=== PATIENT | female | born 1945 | race Caucasian/White ===

== ENCOUNTER 2019-03-30 18:28 | Inpatient (IN) | payer MEDICARE, SELFPAY ==
[2019-03-30] VITALS (8 sets, daily range): BP systolic 122–138; BP diastolic 66–83; PULSE 96–115; RESP 18–28; TEMP 37.1–37.5; O2SAT 90–94; BMI 19.7; BMI 19.5; BMI 19.6
--- NOTE | 2019-03-30 18:29 | NURSING ---
NO OLD EKGS
--- NOTE | 2019-03-30 18:44 | EKG12_ITS ---
Test Reason : Blood Pressure : / mmHG Vent. Rate : 101 BPM Atrial Rate : 101 BPM P-R Int : 128 ms QRS Dur : 116 ms QT Int : 354 ms P-R-T Axes : 084 093 062 degrees QTc Int : 459 ms Sinus tachycardia Right bundle branch block Abnormal ECG Confirmed by CARLA APARICIO, GEE ([id number]), metropolitan editor CARLTON DACOSTA ([id number] on 03/31/2019 3:02:15 PM Referred By: ALAN Confirmed By:GEE AGUIRRE MD
--- NOTE | 2019-03-30 18:45 | ED.DCSUM_ITS ---
History of Present Illness Chief Complaint: Shortness of Breath Informant: Patient Onset: Days - Worse since March 28 Context: Gradual Onset Timing: Continuous Quality: Wheezing, cough, phlegm, dyspnea Location: Respiratory Current Severity: Moderate Maximum Severity: Severe Worsened by: Activity Relieved by: Better with albuterol rescue inhaler Associated Symptoms: Congestion and cough Narrative: Patient is a 73-year-old woman who has asthma diagnosed by formal pulmonary testing. She does not have history of COPD and she has never smoked. She denies fever, chills night sweats. She does report nasal congestion. She is never been tested for allergies. She states she is coughing up gobs of phlegm for the past 8 months. She denies chest pain. She denies GI symptoms. She denies myalgias, arthralgias. She denies rash. Denies history of PE or DVT. She denies leg pain, swelling discoloration. Prior similar symptoms: Yes Recent Illness/Hospitalization: Yes - Saw PCP past Sunday - Past Medical History (1) Asthma dependent on inhaled steroids Status: Acute Past Medical History - Allergies and Home Meds Allergies/Adverse Reactions: Allergies No Known Allergies Allergy (Verified 03/30/19 18:31) Primary Care Physician: Elvia Doctor,Out of [NON-STAFF] - Prior records reviewed: Yes Surgical History: noncontributory Lives: Alone Smoking Status: Never smoker Alcohol: None Drugs: None Review of Systems General: Denies: Chills, Fever, Malaise, Sweats Eyes: Denies: Visual changes - bilaterally, Blurred Vision - bilaterally, Diplopia ENT: Denies: Rhinorrhea, Sore throat Cardiovascular: Denies: Chest pain, Palpitations Respiratory: Reports: Dyspnea, Cough, Sputum, Dyspnea on exertion. Denies: Orthopnea, Paroxysmal nocturnal dyspnea, -, - Gastrointestinal: Denies: Abdominal pain, Nausea, Vomiting, Diarrhea, Melena, Hematochezia Genitourinary: Denies: Dysuria, Hematuria, Frequency Musculoskeletal: Denies: Myalgias, Arthralgias, Neck pain, Back pain, Swelling, Extremity Pain Skin: Denies: Rash, Wounds Neurological: Denies: Headache, Weakness, Numbness Allergy: Denies: Uticaria, Swelling of the mouth Physical Exam Vital Signs/Narrative: Vital Signs Temp Pulse Resp BP Pulse Ox 03/30/19 18:29 98.7 F 104 H 21 H 138/83 H 94 Inital Vital Signs reviewed: Yes General: Well nourished, Well developed, Acute Distress Head: Normocephalic, Atraumatic Eyes: Perrl, EOMI ENT: Moist mucous membranes, No rhinorrhea, TM's clear. Negative for: Sinus tenderness Neck: Supple, Nontender, No lymphadenopathy, No JVD Cardiovascular: Regular rhythm, No murmurs, Tachycardia Respiratory: Chest nontender, Wheezing, Decreased Air Movement, Retractions - And use of accessory muscles Abdomen: Soft, Nontender, Nondistended, Normal bowel sounds, No masses Back: Nontender, Normal Inspection Extremities: Nontender, No edema, - - There is no asymmetry, swelling, discoloration, leg vein distention, palpable cords or tenderness along the distribution of the deep venous system. Skin: Normal color, No rash, No Trauma. Negative for: Cyanosis, Diaphoresis, Jaundice Neurological: Alert, Oriented x3, Cranial nerves II-XII grossly intact, Normal Strength, Normal Sensation Psychological: Normal affect, Normal Mood Diagnostic/Tx/Re-eval Chest X-Ray - ED: 2 View, Read by ED Physician, Normal, Heart, Mediastinum, Bony Structures, No Acute Disease, Chronic Changes Impressions Chest X-Ray 03/30/19 20:10 IMPRESSION: No acute cardiopulmonary process. Electronically Signed: Lulú Colón MD at 20:47 EDT Tel , Service support , 03/30/19 20:10 Chest PA and Lateral [RAD] Stat Laboratory Results 03/30/19 03/30/19 18:55 18:55 WBC 8.0 RBC 4.85 Hgb 14.5 Hct 45.0 MCV 92.8 MCH 29.9 MCHC 32.2 RDW Std Deviation 43.0 RDW Coeff of Leah 12.6 Plt Count 178 MPV 11.5 Immature Gran % (Auto) 0.300 Neut % (Auto) 66.8 Lymph % (Auto) 19.8 [place] % (Auto) 6.3 Eos % (Auto) 6.0 H Baso % (Auto) 0.8 Absolute Neuts (auto) 5.3 Absolute Lymphs (auto) 1.58 Nucleated RBC % 0 Sodium 143 Potassium 4.0 Chloride 108 H Carbon Dioxide 29.0 Anion Gap 6 BUN 26 H Creatinine 0.82 Estim Creat Clear Calc 50.32 Est GFR (MDRD) Af Amer 88 Est GFR (MDRD) Non-Af 73 BUN/Creatinine Ratio 31.7 H Glucose 109 H Calcium 9.3 Patient was reassessed. She has minimal use of accessory muscles. Pulse ox 90% on room air. Patient was ambulated around the department. Heart rate increased to 125 and pulse ox dropped to 86%. Will call hospitalist for admission. Suspect there is an allergic component. - Rhythm Strip Rhythm Strip: Sinus Rhythm Rate: 112 Ectopy: None - EKG Initial EKG Interpretation: Sinus Tachycardia - Sinus tachycardia with ventricular rate of 101. KS interval 220 ms. QS duration 160 ms and has a right bundle branch pattern. QT interval is 304 ms. - Medical Decision Making History of asthma and cough obtain chest x-ray to assess for pneumonia, pneumothorax versus exacerbation of asthma. She received 60 mill grams of prednisone. She also was treated with DuoNeb and utero nebulizers. Baseline blood work was obtained to assess for anemia and renal function. Patient desaturated to 86% and only has asthma will call hospitalist for exacerbation of asthma. ED Disposition - Plan for ED Patient: Disposition: Acute Care Hospital [facility] Diagnosis: Status asthmaticus, Respiratory failure with hypoxia, Sinus tachycardia by electrocardiogram Referrals: [facility] Doctor,Out of [NON-STAFF] -
[2019-03-30] MEDS: Albuterol 2.5 MG/3 ML VIAL.NEB. INHALATION ×2 (18:54)
[2019-03-30] MEDS: Ipratropium/Albuterol Sulfate 3 ML AMPUL.NEB INHALATION (18:54)
[2019-03-30 19:08] LABS: Absolute Lymphocyte Count 1.58 X10^3/uL (0.83-4.51); Absolute Neutrophil Count 5.3 X10^3/uL (2.0-7.7); Basophil# 0.06 X10^3/uL; Basophil% 0.8 % (0-1); Eosinophil# 0.48 X10^3/uL; Hemoglobin 14.5 g/dL (12.0-15.0); Lymphocyte # 1.58 X10^3/ul (4.0); Lymphocyte % 19.8 % (19-41); Mean Corp Hgb Conc 32.2 g/dL (32-36); Mean Corpuscular Hgb 29.9 pg (27.0-32.0); Mean Corpuscular Volume 92.8 fL (81-99); Mean Platelet Vol. 11.5 fl (6.2-12.0); Monocyte% 6.3 % (0-10); NRBC Flagged by Analyzer 0 % (0-5); Neutrophil # 5.32 X10^3/uL (2.7-7.7); Neutrophil % 66.8 % (47-70); Platelet Count 178 K/mm3 (150-450); RBC Distribution Width CV 12.6 % (11.6-14.6); Red Blood Count 4.85 M/mm3 (4.2-5.4)
[2019-03-30] MEDS: predniSONE 20 MG Tablet 60 MG PO (19:12)
[2019-03-30 19:23] LABS: Anion Gap 6 (5-15); BUN 26 mg/dL (7-18); BUN/Creat Ratio 31.7 RATIO (10-20); Calcium,Total 9.3 mg/dL (8.5-10.1); Chloride 108 mmol/L (98-107); Creatinine, Serum 0.82 mg/dL (0.55-1.02); EST Glomerular Filtration Rate 73 mL/min (>60); Est Glom Filt Rate - Afr Amer 88 mL/min (>60); Estimated Creatinine Clearance 50.32 ml/min; Glucose 109 mg/dL (74-106); Sodium Level 143 mmol/L (136-145)
--- NOTE | 2019-03-30 20:10 | RAD_ITS ---
STUDY: X-RAY CHEST REASON FOR EXAM: Female, 73 years old. Shortness of breath. TECHNIQUE: PA and lateral views of the chest. COMPARISON: None. FINDINGS: The lungs are hyperinflated. There is no focal consolidation. Normal size heart. Normal mediastinum and marielle. Normal visualized pulmonary arteries. Normal visualized aortic arch and descending thoracic aorta. There are diffuse degenerative changes of the visualized thoracic spine. Normal visualized ribs, clavicles, and shoulders. There is no demonstrated abnormality of the visualized soft tissue structures of the upper abdomen. RAD/Chest PA and Lateral IMPRESSION: No acute cardiopulmonary process. Electronically Signed: Lulú Colón MD at 20:47 EDT Tel , Service support ,
--- NOTE | 2019-03-30 21:27 | ED.RN ---
Addendum entered by Sravanthi Sanchez 03/30/19 21:28: DR. GRECO NOTIFIED. Original Note: WALK TEST PERFORMED. HEART RATE UP TO 125 AND OXYGEN SATURATION DOWN TO 86% AT LOWEST. PATIENT GOT SHORT OF BREATH WHILE WALKING.
--- NOTE | 2019-03-30 21:40 | PCM.HP.STD ---
Problem List (1) Status asthmaticus Status: Acute Qualifiers: Asthma severity: severe (2) Respiratory failure with hypoxia Status: Acute Qualifiers: Chronicity: acute Qualified Code(s): J96.01 - Acute respiratory failure with hypoxia History of Present Illness Date of Admission: 03/30/19 Chief Complaint: Dyspnea, wheezing The patient is a 73 y/o F w/ PMHx: Chronic severe protein calorie malnutrition, Chronic Asthma/? COPD, GERD who presents to the [facility] ED on 03/30/19 with history of several week history of progressively worsening dyspnea, worse with any exertion, recently had to quit her job within the last 2 weeks with notably worsened dyspnea, wheezing for the last 2 to 3 days, more severe over the last 24 hours with mildly productive cough occasionally yellow-tinged in nature with no recent fevers or chills. Initial presentation in the ED with notable wheezing, retracting, accessory muscle usage. Attempted ambulation in the emergency room following aggressive interventions with noted desaturation to 86% on room air. Work-up in the ED included T 90.7, heart rate 104, BP 138/83, respiratory rate 28, 90% on room air, CBC with WBC 8, heme globin 14.5, platelet 178 without evidence of left shift, BMP with chloride 108, BUN/creatinine 28/0.82, glucose 109, chest x-ray with no acute cardiopulmonary findings. In the ED patient ministered albuterol, DuoNeb therapies as well as prednisone 60 mg p.o. x1. Past Medical History Allergies No Known Allergies Allergy (Verified 03/30/19 18:31) Home Medications: Ambulatory Orders Medication Instructions Recorded Albuterol Inhaler [Ventolin Hfa 2 puff INHALATION Q4H PRN PRN 03/30/19 (SP)] Mometasone/Formoterol [Dulera 100 13 gm IH BID 03/30/19 Mcg/5 Mcg Inhaler] Surgical History: no surgical history Psychiatric History: No pertinent psych hx PEDIATRIC NEPHROLOGIST History: No pertinent PEDIATRIC NEPHROLOGIST history Lives: Alone Smoking Status: Never smoker - Patient was never a tobacco user however she does admit to intermittent occasional secondhand tobacco exposure noting minimal but she does state that 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 Alcohol: None Drugs: None - *Family History Maternal History Items: - - Patient notes a maternal family history of chronic COPD with tobacco usage concurrently. Paternal History Items: - - Patient notes a paternal family history of COPD with concurrent tobacco usage as well as alcohol abuse. Sibling History Items: - - Patient notes a sister with chronic COPD with no tobacco exposure as well as another sister with history of cervical cancer. Offspring History Items: - - Patient notes that her daughter has a history of breast cancer. Review of Systems Constitutional: Reports: Anorexia, Malaise, Weakness, Fatigue. Denies: Chills, Fever, Weight Change HEENT: Denies: Head Aches, Sinus Congestion, Sinus Drainage Cardiovascular: Denies: Chest Pain, Palpitations Respiratory: Reports: Cough, Shortness of Breath, Shortness of breath at rest, Shortness of breath upon exertion, Sputum production - Mild productive sputum., Wheezing Gastrointestinal: Denies: Abdominal Pain, Nausea, Vomiting Genitourinary: Denies: Dysuria Musculoskeletal: Denies: Joint Pain, Joint Tenderness Skin: Denies: Rash, Wounds Neurological: Denies: Numbness, Tingling, Focal weakness Psychiatric: Denies: Anxiety, Depression, Homicidal Ideations, Suicidal Ideations Hematologic/ Lymphatic: Denies: Easy Bruising, Easy Bleeding VTE Information - Inpt Only VTE Present on Admission: No VTE Mechan Device Prophylaxis: SCD's VTE Pharm Prophylaxis ordered?: Yes Patient Problems: Active and Suspected Problems Status asthmaticus (Acute) Respiratory failure with hypoxia (Acute) Sinus tachycardia by electrocardiogram (Acute) Subjective: Seated upright in ED bed, fatigued appearance, still ongoing accessory muscle usage, difficulty speaking in full sentences, notes improved since initial presentation but still debilitated. Objective: Physical Examination: General: awake, alert, oriented x 3 and cooperative, seated upright in the ED bed, fatigued appearing, still ongoing increased work of breathing, accessory muscle usage, patient and family no distress is improved since initial presentation. Skin: normal color, turgor, no icterus, cyanosis. HEENT: AT/NC, EOMI, PERRLA, dry MM, no carotid bruits or JVD noted. Lungs: Currently severely diminished throughout, greater bases, increased respiratory rate, still some accessory muscle usage, still some faculty speaking in lengthy sentences but attempting, occasional end expiratory wheezing, no rales or rhonchi. Heart: Mildly tachycardic with regular rhythm; no gallop, rub audible. Abdomen: soft, thin habitus with evidence of malnutrition, NTTP, ND, normal BS, no HSM. Extremities: no cyanosis, clubbing, or edema. Neurological: patient awake, alert, oriented x 3; cognitive function intact; pupils equally reactive to light and accomodation; cranial nerves II-XII grossly normal, moving all 4 extremities, no focal deficits, strength severely global decrease secondary to acute presentation. Psychiatric: affect appears fatigued, no acute evidence of depressive or anxiety feelings. - Physical Exam Vital Signs Temp Pulse Resp BP Pulse Ox 98.7 F 110 H 22 H 129/71 H 92 03/30/19 18:29 03/30/19 21:35 03/30/19 21:35 03/30/19 21:35 03/30/19 21:35 Oxygen Flow Rate (L/min) 2 Oxygen Delivery Method Nasal Cannula Weight: 115 lb Body Mass Index (BMI) 19.7 Laboratory Tests Past 24 Hrs 03/30/19 03/30/19 18:55 18:55 WBC 8.0 RBC 4.85 Hgb 14.5 Hct 45.0 MCV 92.8 MCH 29.9 MCHC 32.2 RDW Std Deviation 43.0 RDW Coeff of Leah 12.6 Plt Count 178 MPV 11.5 Immature Gran % (Auto) 0.300 Neut % (Auto) 66.8 Lymph % (Auto) 19.8 [place] % (Auto) 6.3 Eos % (Auto) 6.0 H Baso % (Auto) 0.8 Absolute Neuts (auto) 5.3 Absolute Lymphs (auto) 1.58 Nucleated RBC % 0 Sodium 143 Potassium 4.0 Chloride 108 H Carbon Dioxide 29.0 Anion Gap 6 BUN 26 H Creatinine 0.82 Estim Creat Clear Calc 50.32 Est GFR (MDRD) Af Amer 88 Est GFR (MDRD) Non-Af 73 BUN/Creatinine Ratio 31.7 H Glucose 109 H Calcium 9.3 Assessment/Plan All Active Problems Asthma dependent on inhaled steroids (Acute) Status asthmaticus (Acute) Respiratory failure with hypoxia (Acute) Sinus tachycardia by electrocardiogram (Acute) The patient is a 73 y/o F w/ PMHx: Chronic severe protein calorie malnutrition, Chronic Asthma/? COPD, GERD who presents to the [facility] ED on 03/30/19 with history of several week history of progressively worsening dyspnea, worse with any exertion, recently had to quit her job within the last 2 weeks with notably worsened dyspnea, wheezing for the last 2 to 3 days, more severe over the last 24 hours with mildly productive cough occasionally yellow-tinged in nature with no recent fevers or chills. (1) Acute Hypoxic Respiratory Failure secondary to Acute on Chronic Asthma/? COPD exacerbation: Notable increased work of breathing, accessory muscle usage, evident distress. Work-up in the ED included T 90.7, heart rate 104, BP 138/83, respiratory rate 28, 90% on room air, CBC with WBC 8, hemoglobin 14.5, platelet 178 without evidence of left shift, BMP with chloride 108, BUN/creatinine 28/0.82, glucose 109, chest x-ray with no acute cardiopulmonary findings. Will admit to [facility], will maintain on oxygen with wean as tolerated to room air, continue ATC duonebs, PRN albuterol, IV methylprednisolone, IV magnesium 2 gm x 1, add singulair, HOB, IS parameters, defer abx as afebrile, no WBC elevation nor L shift, obtain respiratory viral panel and sputum cultures. If worsened appearance would obtain ABG, place on BIPAP. Given presentation, history especially with familial concurrent underlying lung disease will request pulmonary consultation. (2) Chronic severe protein calorie malnutrition: Evidenced per BMI, habitus, muscle and fat loss evident, notable weight loss over the last several months likely secondary to #1, nutrition consulted. (3) GERD: Famotidine. (4) DVT prophylaxis: SCDs, lovenox. (5) CODE status: Patient does not have healthcare power of ip technology transactions attorney or living will in place. She and her daughter who is present are interested in setting these up. Discussed plan to consult case management/social work to assist. Discussed CODE status at length including difference between FULL code, DNR-CCA and DNR-CC status. Following discussions about the differences in these status, requested full code status. Advanced Care Planning Face to Face Time: 16 minutes. Code Visit Inpatient E&M: 61404 Init Hosp L3 Procedures: 09888 Advncd Care Plan 30 Min
[2019-03-30] MEDS: 0.9% Normal Saline 1,000 ML 100 ML IV (23:19)
[2019-03-30] MEDS: Montelukast 10 MG Tablet PO (23:32)
[2019-03-30] MEDS: MELATONIN 3 MG TABLET PO (23:33)
[2019-03-30] MEDS: 0.9% NaCl Peripheral Flush Adult/Peds IV (23:37)
[2019-03-31] VITALS (17 sets, daily range): BP systolic 101–139; BP diastolic 69–110; PULSE 78–104; RESP 16–20; TEMP 36.4–36.8; O2SAT 92–98
[2019-03-31] MEDS: guaiFENesin 10 ML UDC (200MG/10ML) 20 ML PO (04:27)
[2019-03-31 05:34] LABS: Absolute Lymphocyte Count 0.62 X10^3/uL (0.83-4.51); Absolute Neutrophil Count 3.3 X10^3/uL (2.0-7.7); Basophil# 0.01 X10^3/uL; Basophil% 0.3 % (0-1); Hemoglobin 13.8 g/dL (12.0-15.0); Lymphocyte # 0.62 X10^3/ul (4.0); Lymphocyte % 15.7 % (19-41); Mean Corp Hgb Conc 32.1 g/dL (32-36); Mean Corpuscular Hgb 29.7 pg (27.0-32.0); Mean Corpuscular Volume 92.5 fL (81-99); Mean Platelet Vol. 11.5 fl (6.2-12.0); Monocyte# 0.02 X10^3/uL; Monocyte% 0.5 % (0-10); NRBC Flagged by Analyzer 0 % (0-5); Neutrophil # 3.28 X10^3/uL (2.7-7.7); Platelet Count 167 K/mm3 (150-450); RBC Distribution Width CV 12.6 % (11.6-14.6); RBC Distribution Width SD 42.9 fl (35.1-43.9); Red Blood Count 4.65 M/mm3 (4.2-5.4)
[2019-03-31] MEDS: 0.9% NaCl Peripheral Flush Adult/Peds IV ×2 (05:40→10:53)
[2019-03-31 05:59] LABS: Anion Gap 9 (5-15); BUN 24 mg/dL (7-18); BUN/Creat Ratio 31.6 RATIO (10-20); Calcium,Total 8.5 mg/dL (8.5-10.1); Chloride 108 mmol/L (98-107); Creatinine, Serum 0.76 mg/dL (0.55-1.02); EST Glomerular Filtration Rate 79 mL/min (>60); Est Glom Filt Rate - Afr Amer 96 mL/min (>60); Estimated Creatinine Clearance 40.89 ml/min; Glucose 174 mg/dL (74-106); Sodium Level 143 mmol/L (136-145)
[2019-03-31] MEDS: Ipratropium/Albuterol Sulfate 3 ML AMPUL.NEB INHALATION ×3 (07:01→18:42)
--- NOTE | 2019-03-31 08:58 | NURSING ---
reviewed vital signs taken by Edward Bowers nursing program manager. re-evaled patients blood pressure.
[2019-03-31] MEDS: 0.9% Normal Saline 1,000 ML 100 ML IV ×2 (09:54→19:48)
[2019-03-31] MEDS: Enoxaparin 40 MG/0.4 ML Syringe SC (09:55)
--- NOTE | 2019-03-31 10:49 | PCM.CONS.PUL ---
Problem List (1) Asthma dependent on inhaled steroids Status: Acute (2) Status asthmaticus Status: Acute Qualifiers: Asthma severity: severe (3) Respiratory failure with hypoxia Status: Acute Qualifiers: Chronicity: acute Qualified Code(s): J96.01 - Acute respiratory failure with hypoxia (4) Sinus tachycardia by electrocardiogram Status: Acute Reason for Consult Date of Consultation: 03/31/19 Reason for Consultation: Hypoxia History of Present Illness: The patient is a 73 year old F, with past medical history listed below, who presented to [facility] on 03/30/2019 secondary to acute worsening in cough and shortness of breath. Patient reported that she has had difficulty with shortness of breath for over 3 years. Patient had seen a agricultural purchasing agent in the past and had pulmonary function testing that was reportedly consistent with [id number] asthma. Patient was reportedly placed on PRN albuterol and improved. However, approximately 8 months ago, patient started to cough up globs of phlegm. Patient states that this had initially been clear to white, but then had progressed to yellow. Patient was placed on antibiotics and steroids with no significant improvement. Patient then presented to the ER for evaluation. On presentation to the ER, patient was noted to have accessory muscle use and saturating 90% on room air. Patient was ambulated around the ER and heart rate increased to 125 bpm and pulse ox dropped to 86%. Patient was given IV steroids, bronchodilators and admitted to the floor for further evaluation. Patient reports that she is never been placed on supplemental oxygen previously. Patient has not required hospitalization, but does report that she has been to the ER 2 or 3 times every time she developed bronchitis. Patient states this typically happens in the wintertime and can last for 3 to 6 weeks. Patient denies any acute chest pain, nausea or vomiting. Patient does report significant weight loss that she associates with coughing interrupting her ability to eat. Patient denies any hemoptysis, fever, chills, posttussive emesis or lower extremity edema. Patient does not report any cardiac history. Patient currently works as a closing supervisor. [place] until a divorce. Patient reported that they did have some chickens, but not a whole flock. Patient does not have a history of exposure to asbestos or TB. Patient denies any significant travel history. Patient has never been a smoker. Patient does report that prednisone has worked in the past. Patient denies any history of hospitalizations other than the of her 2 children, but does receive antibiotics frequently secondary to respiratory issues. Past Medical History Allergies No Known Allergies Allergy (Verified 03/30/19 18:31) Home Medications: Ambulatory Orders Medication Instructions Recorded Albuterol Inhaler [Ventolin Hfa 2 puff INHALATION Q4H PRN PRN 03/30/19 (SP)] Mometasone/Formoterol [Dulera 100 13 gm IH BID 03/30/19 Mcg/5 Mcg Inhaler] Surgical History: no surgical history Psychiatric History: No pertinent psych hx POLYSOMNOGRAPHIC TECH History: No pertinent POLYSOMNOGRAPHIC TECH history Lives: Alone Smoking Status: Never smoker Alcohol: None Drugs: None - *Family History Maternal History Items: - - Patient notes a maternal family history of chronic COPD with tobacco usage concurrently. Paternal History Items: - - Patient notes a paternal family history of COPD with concurrent tobacco usage as well as alcohol abuse. Sibling History Items: - - Patient notes a sister with chronic COPD with no tobacco exposure as well as another sister with history of cervical cancer. Offspring History Items: - - Patient notes that her daughter has a history of breast cancer. Review of Systems Constitutional: Reports: Anorexia, Weight Change. Denies: Chills, Fever, Night Sweats, Weakness Eyes: Denies: Blurred vision, Double vision, Drainage HEENT: Reports: Nasal Congestion - Intermittent. Denies: Difficulty Hearing, Dysphasia, Ear Pain, Hearing Changes, Nasal bleeding Cardiovascular: Reports: Chest Tightness. Denies: Chest Pain, Chest Pressure, Edema, Heaviness, Orthopnea, Paroxysmal Noc. Dyspnea Respiratory: Reports: Cough, Shortness of breath upon exertion, Sputum production, Wheezing. Denies: Hemoptysis Gastrointestinal: Denies: Abdominal Pain, Diarrhea, Hematemesis, Nausea, Melena, Vomiting Genitourinary: Denies: Dysuria, Hematuria Gynecological: Denies: Breast symptoms, Vaginal bleeding Musculoskeletal: Denies: Foot Pain, Joint stiffness, Joint swelling, Joint Tenderness, Leg Pain Skin: Denies: Dryness, Jaundice Neurological: Denies: Balance problems, Double vision, Slurred speech, Difficulty swallowing, Focal weakness, Numbness, Tingling Psychiatric: Denies: Anxiety, Depression, Homicidal Ideations, Suicidal Ideations Endocrine: Denies: Polydipsia, Polyuria Hematologic/ Lymphatic: Denies: Adenopathy, Anemia, Easy Bruising, Easy Bleeding Patient Problems: Active and Suspected Problems Status asthmaticus (Acute) Respiratory failure with hypoxia (Acute) Sinus tachycardia by electrocardiogram (Acute) Objective: Chest x-ray was personally reviewed and shows no acute infiltrate or effusion. Pulmonary function test from outside facility was not available for review. Patient does not have any history of CT scan in our computer. - Physical Exam General: Alert, Oriented x3, Cooperative, - - Mild conversational dyspnea. Thin build. No accessory muscle use noted. HEENT: Atraumatic, PERRLA, EOMI, Normocephalic, - - Slight scleral injection without icterus Oral: Moist Mucosa, No Gingival or Mucosal Lesions/ Ulcerations Neck: Supple, No JVD, No Nodes, Trachea Midline Lungs: No rhonchi, No rales, Diminished - Especially at the left base, Wheezes - Periodic, especially at end exhalation Cardiovascular: Regular rate, Regular Rhythm, Normal S1, Normal S2, No murmurs, No rub noted, No Gallop Abdomen: Bowel Sounds Present, Soft, Non Tender, Non-Distended Extremities: No clubbing, No cyanosis, No edema, Capillary Refill Less than 3 Seconds Skin: No rashes, No breakdown Musculoskeletal: No Tenderness to Palpation of Joints or Extremities Lymphatic: No Cervical, Supraclavicular, or Inguinal Adenopathy Neurological: Cranial nerves II-XII grossly intact, Neuro grossly intact, Motor Exam 5/5 strength throughout Psych/Mental Status: Alert and oriented to time, place, person, mood and affect Vital Signs Temp Pulse Resp BP Pulse Ox 36.7 C 82 16 118/70 98 03/31/19 08:05 03/31/19 08:55 03/31/19 08:55 03/31/19 08:05 03/31/19 08:05 Oxygen Flow Rate (L/min) 3 Oxygen Delivery Method Nasal Cannula Weight: 51.7 kg Body Mass Index (BMI) 19.5 Intake and Output for Last 24 Hours 03/29/19 03/30/19 03/31/19 23:59 23:59 23:59 Intake Total 1404.00 / 1404.00 Output Total 150 / 150 Balance 1254.00 / 1254.00 Laboratory Tests Past 24 Hrs 03/30/19 03/30/19 03/31/19 18:55 18:55 05:16 WBC 8.0 4.0 L RBC 4.85 4.65 Hgb 14.5 13.8 Hct 45.0 43.0 MCV 92.8 92.5 MCH 29.9 29.7 MCHC 32.2 32.1 RDW Std Deviation 43.0 42.9 RDW Coeff of Leah 12.6 12.6 Plt Count 178 167 MPV 11.5 11.5 Immature Gran % (Auto) 0.300 0.500 Neut % (Auto) 66.8 83.0 H Lymph % (Auto) 19.8 15.7 L [place] % (Auto) 6.3 0.5 Eos % (Auto) 6.0 H 0.0 Baso % (Auto) 0.8 0.3 Absolute Neuts (auto) 5.3 3.3 Absolute Lymphs (auto) 1.58 0.62 L Nucleated RBC % 0 0 Sodium 143 Potassium 4.0 Chloride 108 H Carbon Dioxide 29.0 Anion Gap 6 BUN 26 H Creatinine 0.82 Estim Creat Clear Calc 50.32 Est GFR (MDRD) Af Amer 88 Est GFR (MDRD) Non-Af 73 BUN/Creatinine Ratio 31.7 H Glucose 109 H Calcium 9.3 03/31/19 05:16 WBC RBC Hgb Hct MCV MCH MCHC RDW Std Deviation RDW Coeff of Leah Plt Count MPV Immature Gran % (Auto) Neut % (Auto) Lymph % (Auto) [place] % (Auto) Eos % (Auto) Baso % (Auto) Absolute Neuts (auto) Absolute Lymphs (auto) Nucleated RBC % Sodium 143 Potassium 4.0 Chloride 108 H Carbon Dioxide 26.0 Anion Gap 9 BUN 24 H Creatinine 0.76 Estim Creat Clear Calc 40.89 Est GFR (MDRD) Af Amer 96 Est GFR (MDRD) Non-Af 79 BUN/Creatinine Ratio 31.6 H Glucose 174 H Calcium 8.5 Clinical Impression(s) from Imaging Studies Chest X-Ray 03/30/19 20:10 IMPRESSION: No acute cardiopulmonary process. Electronically Signed: Lulú Colón MD at 20:47 EDT Tel , Service support , Assessment/Plan All Active Problems Asthma dependent on inhaled steroids (Acute) Status asthmaticus (Acute) Respiratory failure with hypoxia (Acute) Sinus tachycardia by electrocardiogram (Acute) RECOMMENDATIONS: 1. Obtain CT Chest 2. Continue bronchodilators and steroids 3. Attempt to wean to room air 4. Attempt to obtain sputum culture 5. Walking oximetry prior to discharge IMPRESSIONS: 1. Acute hypoxic respiratory insufficiency secondary to possible asthma exacerbation Previous pulmonary function tests are not available for review. Patient reports that she does have a history of asthma, but 8 months of symptoms would be slightly excessive. Will obtain a CT scan of the chest to evaluate for possible bronchiectasis. Patient does have significant decreased breath sounds at the left base and weight loss, so malignancy would be another consideration. Patient does have a history of exposures to bird/chickens in the past, so hypersensitivity pneumonitis would also be a consideration. Congestive heart failure would be a consideration, but patient does not have any lower extremity edema. We will hold on echocardiogram for now. No indication for BiPAP at this time. Continue with bronchodilators and IV steroids for now. Patient did have a significant eosinophilia on presentation, so Churg-Sivakumar would be a consideration. 2. Weight loss/protein calorie malnutrition Defer to dietitian evaluation. Patient has lost significant amount of weight secondary to reported decreased p.o. intake. Patient does not have any liver function studies for evaluation. Patient is not reporting any GI issues to suggest colon cancer, but age-appropriate screening would be recommended. 3. GERD/protracted course/advanced age Complicates care, management, recovery and prognosis. Okay to continue with Pepcid therapy for now. No signs of a GI bleed clinically. Code Visit Inpatient E&M: 05694 Init Hosp L3
--- NOTE | 2019-03-31 11:10 | CT_ITS ---
STUDY: CT CHEST/THORAX WITH CONTRAST REASON FOR EXAM: Female, 73 years old. Shortness of breath/respiratory failure. Acute asthma exacerbation. Nonsmoker. RADIATION DOSAGE (If Supplied By Facility): CTDIvol = ( 9.52 ) mGy, DLP = ( 228.10 ) mGycm TECHNIQUE: Transaxial imaging was performed following intravenous administration of IV Isovue 300 100mL. Multiplanar coronal and sagittal images were reformatted. Individualized dose optimization techniques were used for this CT. COMPARISON: PA and lateral chest x-ray March 30, 2019. FINDINGS: Minor obliquely oriented linear scarring or subsegmental atelectasis in the lateral basilar right middle lobe. A pair of sub-6 mm nodular densities are noted in the anterior periphery of the left lower lobe at the mid lung abutting the oblique pleural fissure. There is no demonstrated pleural abnormality. Normal heart. The pericardium is thickened anteriorly up to 8.5 mm with a density of 29.7 Hounsfield units, arguing against simple effusion.. There are calcifications of the coronary arteries. Normal mediastinum. There is an upper normal size lymph node in the immediate subcarinal tissues and 1-2 upper normal sized left hilar lymph nodes. There is a 1.4 x 0.7 x 0.95 cm right hilar lymph node on series 2 image 60, series 602 image 118. Normal enhanced pulmonary arteries. Normal aorta arch and descending thoracic aorta. There are multi-level mild degenerative changes of the thoracic spine, with more mild to moderate degenerative changes seen in the visualized lower cervical and upper lumbar spine. Well-defined 8.5 x 6 x 10 mm low-density in the anterior left lobe of the liver (series 2 image 108, series 602 image 76) may be a cyst or hemangioma. Well-defined 1.35 x 1.15 x 1.2 cm subcapsular low-density in the anterior aspect of the medial left lobe of liver (series 2 image 108, series 602 image 96) as well as a second, similar-appearing 1 x 1 x 0.9 cm subcapsular low-density (series 2 image 120, series 602 image 103) have the appearance of cysts. 1 25 x 1.2 x 1.25 cm subcapsular low-density at the anterior left lobe of liver on series 2 image 118, series 602 image 84 could be a cyst or hemangioma. Incompletely included in the [id number] is 1. 1501.1 cm low-density in the inferior right lobe of the liver, also suggesting a cyst. CT/Chest WITH Contrast IMPRESSION: 1. Minor linear scarring or subsegmental atelectasis in the lateral basilar right middle lobe. 2. A pair of sub-6 mm nodules in the left lower lobe at the mid lung abut the pleural fissure. By Fleischner criteria, these do not require specific radiographic follow-up. 3. Normal heart size. There is mild anterior pericardial thickening. Atherosclerotic calcification noted in the left anterior descending coronary artery. 4. A few upper normal-sized hilar/subcarinal lymph nodes noted, likely reactive. 5. Several low-density, benign-appearing structures in the liver, as described. These could be further characterized with ultrasound or MRI. Electronically Signed: Jamie Hubbard MD at 15:32 EDT , Service support ,
--- NOTE | 2019-03-31 14:10 | CASEMGMT ---
RN CM Face to Face with patient for initial transition planning/care coordination assessment. RN CM introduced self and role at [facility]. Patient sitting in chair, alert and oriented. Patient willing to participate in assessment and is able to answer all questions appropriately. Care providers, pharmacy, and demographics verified. Patient wishes to discharge home, denies need for home health at this time. Patient states she has no further needs or concerns at this time. CM to follow for discharge planning needs that may arise. PCP: Raquel Specialists: Getting setup with Dr. Arauz [facility] [employer] [facility] Benef[facility]: yes Living Will/HPOA: none, interested in completing SW notified LNOK: daughter Living Arrangements: Patient lives alone in a single level duplex with 2 steps to enter the home. Patient is independent Transportation: self/daughter DME/HHC: Patient has BSC and nebulizer at home. Will monitor for need for home oxygen prior to discharge. Disposition Plan: Patient to discharge home with family support and follow-up plans in place. Mine CONNOLLY, RN, CM
--- NOTE | 2019-03-31 15:17 | NURSING ---
reviewed vitals taken by Edward Bowers nursing aide.
--- NOTE | 2019-03-31 15:28 | PCM.PN.HOSP ---
Patient Problems: Active and Suspected Problems Status asthmaticus (Acute) Respiratory failure with hypoxia (Acute) Sinus tachycardia by electrocardiogram (Acute) Subjective: Short of breath. Has been ongoing for several months. Has had PFTs previously that showed non-life threatening asthma. Vitals/I&O's: Vital Signs Temp Pulse Resp BP Pulse Ox 36.8 C 92 16 138/71 H 94 03/31/19 14:25 03/31/19 14:25 03/31/19 14:25 03/31/19 14:25 03/31/19 15:26 Oxygen Flow Rate (L/min) 2 Oxygen Delivery Method Room Air Weight: 51.7 kg Body Mass Index (BMI) 19.5 Intake and Output for Last 24 Hours 03/29/19 03/30/19 03/31/19 23:59 23:59 23:59 Intake Total 2304.00 / 2304.00 Output Total 300 / 300 Balance / General: Alert, No apparent distress HEENT: Atraumatic, Normocephalic Oral: Moist Mucosa, No Gingival or Mucosal Lesions/ Ulcerations Neck: No Nodes, Thyroid Normal Size and Texture Lungs: Clear to auscultation, Diminished Cardiovascular: Regular rate, Regular Rhythm, Normal S1, Normal S2, No murmurs Abdomen: Bowel Sounds Present, Soft, Non Tender, Non-Distended Extremities: No edema, No Calf Tenderness Psych/Mental Status: Normal Affect, Appropriate Laboratory Results 03/30/19 18:55: WBC 8.0, RBC 4.85, Hgb 14.5, Hct 45.0, MCV 92.8, MCH 29.9, MCHC 32.2, RDW Std Deviation 43.0, RDW Coeff of Leah 12.6, Plt Count 178, MPV 11.5, Immature Gran % (Auto) 0.300, Neut % (Auto) 66.8, Lymph % (Auto) 19.8, [place] % (Auto) 6.3, Eos % (Auto) 6.0 H, Baso % (Auto) 0.8, Absolute Neuts (auto) 5.3, Absolute Lymphs (auto) 1.58, Nucleated RBC % 0 03/30/19 18:55: Sodium 143, Potassium 4.0, Chloride 108 H, Carbon Dioxide 29.0, Anion Gap 6, BUN 26 H, Creatinine 0.82, Estim Creat Clear Calc 50.32, Est GFR (MDRD) Af Amer 88, Est GFR (MDRD) Non-Af 73, BUN/Creatinine Ratio 31.7 H, Glucose 109 H, Calcium 9.3 03/31/19 05:16: WBC 4.0 L, RBC 4.65, Hgb 13.8, Hct 43.0, MCV 92.5, MCH 29.7, MCHC 32.1, RDW Std Deviation 42.9, RDW Coeff of Leah 12.6, Plt Count 167, MPV 11.5, Immature Gran % (Auto) 0.500, Neut % (Auto) 83.0 H, Lymph % (Auto) 15.7 L, [place] % (Auto) 0.5, Eos % (Auto) 0.0, Baso % (Auto) 0.3, Absolute Neuts (auto) 3.3, Absolute Lymphs (auto) 0.62 L, Nucleated RBC % 0 03/31/19 05:16: Sodium 143, Potassium 4.0, Chloride 108 H, Carbon Dioxide 26.0, Anion Gap 9, BUN 24 H, Creatinine 0.76, Estim Creat Clear Calc 40.89, Est GFR (MDRD) Af Amer 96, Est GFR (MDRD) Non-Af 79, BUN/Creatinine Ratio 31.6 H, Glucose 174 H, Calcium 8.5 Current Medications Acetaminophen (Tylenol) 650 mg PO Q6H PRN PRN PRN Reason: Non-cardiac pain (mod-severe) Al Hydroxide/Mg Hydroxide (Mylanta Ii) 15 - 30 ml PO Q4H PRN PRN PRN Reason: INDIGESTION Albuterol Sulfate (Ventolin Aerosols) 2.5 mg INHALATION Q2H PRN PRN PRN Reason: dyspnea, wheezing Albuterol/Ipratropium (Duoneb) 3 ml INHALATION Q4HWA.RT COUNTS INCLUDE 234 BEDS AT THE [facility] Last Admin: 03/31/19 10:59 Dose: Not Given Documented by: Dextrose (D50w Syringe) 0 gm IV X1 PRN; Protocol PRN Reason: Hypoglycemia Enoxaparin Sodium (Lovenox) 40 mg SC DAILY@1000 CONY Last Admin: 03/31/19 09:55 Dose: 40 mg Documented by: Glucagon () 1 mg IM .X1 PRN PRN Reason: Hypoglycemia Guaifenesin (Robitussin) 20 ml PO Q4H PRN PRN PRN Reason: COUGH Last Admin: 03/31/19 04:27 Dose: 20 ml Documented by: Hydralazine HCl (Apresoline Iv) 10 mg IV Q4H PRN PRN PRN Reason: SBP > 160 Sodium Chloride () 1,000 mls @ 100 mls/hr IV .Q10H COUNTS INCLUDE 234 BEDS AT THE [facility] Last Infusion: 03/31/19 11:54 Dose: 100 mls/hr Documented by: Magnesium Hydroxide (Milk Of Magnesia) 30 ml PO DAILY PRN PRN Reason: Constipation Melatonin (Melatonin) 3 mg PO QHS PRN PRN PRN Reason: INSOMNIA Last Admin: 03/30/19 23:33 Dose: 3 mg Documented by: Methylprednisolone (Solu-Medrol) 40 mg IV Q8 COUNTS INCLUDE 234 BEDS AT THE [facility] Last Admin: 03/31/19 15:21 Dose: 40 mg Documented by: Montelukast Sodium (Singulair) 10 mg PO DAILY@1700 COUNTS INCLUDE 234 BEDS AT THE [facility] Last Admin: 03/30/19 23:32 Dose: 10 mg Documented by: Nutritional Formula (Lactose Free) (Ensure Enlive) 120 ml PO 4X/DAY COUNTS INCLUDE 234 BEDS AT THE [facility] Last Admin: 03/31/19 15:21 Dose: Not Given Documented by: Ondansetron HCl (Zofran) 4 mg IV Q8H PRN PRN PRN Reason: NAUSEA/VOMITING Sodium Chloride () 10 - 40 ml IV UD PRN PRN Reason: SALINE FLUSH Last Admin: 03/31/19 10:53 Dose: 10 ml Documented by: Throat Lozenges (Cepacol Sore Throat Lozenge) 1 lozenge MUCOUS MEM Q2H PRN PRN PRN Reason: Sore throat or cough Medical Necessity - Tobacco Use Smoking Status: Never smoker Assessment/Plan All Active Problems Asthma dependent on inhaled steroids (Acute) Status asthmaticus (Acute) Respiratory failure with hypoxia (Acute) Sinus tachycardia by electrocardiogram (Acute) 1. acute asthma exacerbation follow up CT report (my review was unremarkable) continue BDs and methylprednisolone pulm assistance appreciated 2. protein malnutrition 22.9% weight loss in 9 months. nutrition recommends supplements QID 3. VTE prophylaxis: moderate risk. LMWH. Code Visit Inpatient E&M: 66666 Subs Hosp L2
[2019-03-31] MEDS: Montelukast 10 MG Tablet PO (17:03)
--- NOTE | 2019-03-31 17:13 | CASEMGMT ---
Social Work Note SW received referral for advanced directives. SW will follow up with pt tomorrow in regards to advanced directives. Mine Sanchez PHOTOGRAPHIC TECHNICIAN, [employer]
[2019-04-01] VITALS (8 sets, daily range): BP systolic 121–132; BP diastolic 65–97; PULSE 73–95; RESP 16–20; TEMP 36.5–36.7; O2SAT 90–98
[2019-04-01] MEDS: 0.9% Normal Saline 1,000 ML 100 ML IV (05:50)
[2019-04-01] MEDS: Ipratropium/Albuterol Sulfate 3 ML AMPUL.NEB INHALATION ×2 (06:53→12:31)
--- NOTE | 2019-04-01 07:15 | PN_ITS ---
Patient Problems: Active and Suspected Problems Acute asthma exacerbation (Acute) Respiratory failure with hypoxia (Acute) Sinus tachycardia by electrocardiogram (Acute) Subjective: The patient was seen and examined at the bedside this morning. Events from the last 24 hours have been reviewed. The patient is currently afebrile, hemodynamically stable and maintaining appropriate oxygen saturations on room air. The patient's breathing quality has improved. There are tentative plans for her to be discharged home today. She is scheduled to follow-up in the pulmonary medicine clinic accordingly. Objective: The patient's most recent lab work, culture data and imaging studies have all been personally reviewed. Respiratory viral panel is pending. - Physical Exam General: Alert, Oriented x3, Cooperative, No apparent distress HEENT: Atraumatic, PERRLA, Normocephalic Oral: No Gingival or Mucosal Lesions/ Ulcerations Neck: Supple, No Nodes, Trachea Midline Lungs: No rhonchi, No wheeze, No rales Cardiovascular: Regular rate, Regular Rhythm, Normal S1, Normal S2, No murmurs Abdomen: Bowel Sounds Present, Soft, Non Tender Extremities: No clubbing, No cyanosis, No edema Skin: No breakdown Musculoskeletal: No Tenderness to Palpation of Joints or Extremities, No Muscle Wasting Lymphatic: No Cervical, Supraclavicular, or Inguinal Adenopathy Neurological: Cranial nerves II-XII grossly intact, Neuro grossly intact Psych/Mental Status: Anxious Vital Signs Temp Pulse Resp BP Pulse Ox 97.9 F 73 16 126/65 H 94 04/01/19 02:25 04/01/19 02:25 04/01/19 02:25 04/01/19 02:25 04/01/19 03:00 Oxygen Flow Rate (L/min) 2 Oxygen Delivery Method Nasal Cannula Weight: 113 lb 15.664 oz Body Mass Index (BMI) 19.5 Intake and Output for Last 24 Hours 03/30/19 03/31/19 04/01/19 23:59 23:59 23:59 Intake Total 3594.00 / 3944.00 1650 / 1650 Output Total 600 / 1000 700 / 700 Balance 2994.00 / 2944.00 950 / 950 Labs (Last 48 Hours) 03/30/19 03/30/19 03/31/19 18:55 18:55 05:16 WBC 8.0 4.0 L RBC 4.85 4.65 Hgb 14.5 13.8 Hct 45.0 43.0 MCV 92.8 92.5 MCH 29.9 29.7 MCHC 32.2 32.1 RDW Std Deviation 43.0 42.9 RDW Coeff of Leah 12.6 12.6 Plt Count 178 167 MPV 11.5 11.5 Immature Gran % (Auto) 0.300 0.500 Neut % (Auto) 66.8 83.0 H Lymph % (Auto) 19.8 15.7 L Sutton % (Auto) 6.3 0.5 Eos % (Auto) 6.0 H 0.0 Baso % (Auto) 0.8 0.3 Absolute Neuts (auto) 5.3 3.3 Absolute Lymphs (auto) 1.58 0.62 L Nucleated RBC % 0 0 Sodium 143 Potassium 4.0 Chloride 108 H Carbon Dioxide 29.0 Anion Gap 6 BUN 26 H Creatinine 0.82 Estim Creat Clear Calc 50.32 Est GFR (MDRD) Af Amer 88 Est GFR (MDRD) Non-Af 73 BUN/Creatinine Ratio 31.7 H Glucose 109 H Calcium 9.3 03/31/19 05:16 WBC RBC Hgb Hct MCV MCH MCHC RDW Std Deviation RDW Coeff of Leah Plt Count MPV Immature Gran % (Auto) Neut % (Auto) Lymph % (Auto) Sutton % (Auto) Eos % (Auto) Baso % (Auto) Absolute Neuts (auto) Absolute Lymphs (auto) Nucleated RBC % Sodium 143 Potassium 4.0 Chloride 108 H Carbon Dioxide 26.0 Anion Gap 9 BUN 24 H Creatinine 0.76 Estim Creat Clear Calc 40.89 Est GFR (MDRD) Af Amer 96 Est GFR (MDRD) Non-Af 79 BUN/Creatinine Ratio 31.6 H Glucose 174 H Calcium 8.5 Clinical Impression(s) from Imaging Studies Chest X-Ray 03/30/19 20:10 IMPRESSION: No acute cardiopulmonary process. Electronically Signed: Lulú Colón MD at 20:47 EDT Tel , Service support , Chest CT 03/31/19 11:10 IMPRESSION: 1. Minor linear scarring or subsegmental atelectasis in the lateral basilar right middle lobe. 2. A pair of sub-6 mm nodules in the left lower lobe at the mid lung abut the pleural fissure. By Fleischner criteria, these do not require specific radiographic follow-up. 3. Normal heart size. There is mild anterior pericardial thickening. Atherosclerotic calcification noted in the left anterior descending coronary artery. 4. A few upper normal-sized hilar/subcarinal lymph nodes noted, likely reactive. 5. Several low-density, benign-appearing structures in the liver, as described. These could be further characterized with ultrasound or MRI. Electronically Signed: Jamie Hubbard MD at 15:32 EDT , Service support , Medical Necessity - Tobacco Use Smoking Status: Never smoker Assessment/Plan All Active Problems Acute asthma exacerbation (Acute) Respiratory failure with hypoxia (Acute) Sinus tachycardia by electrocardiogram (Acute) RECOMMENDATIONS: 1. Continue bronchodilators and steroids. Recommend steroid taper at discharge. 2. Respiratory viral panel. 3. Perform walking oximetry study prior to consideration for discharge from the hospital. 4. Outpatient pulmonary follow-up within 2 weeks of discharge. IMPRESSIONS: 1. Acute hypoxic respiratory insufficiency secondary to possible asthma exacerbation Previous pulmonary function tests are not available for review. Patient reports that she does have a history of asthma, having previously been evaluated by an outside casualty insurance claim adjuster. CT scan did not reveal any evidence of significant pulmonary pathology. Unclear precipitating etiology. The patient has responded to empiric bronchodilators and steroids. She will require close outpatient pulmonary follow-up. I would recommend repeating her pulmonary function studies. Once she has been weaned from steroids, recommend checking CBC with differential to evaluate for peripheral eosinophilia along with RAST profile and IgE level. 2. Weight loss/protein calorie malnutrition Defer to dietitian evaluation. Patient has lost significant amount of weight secondary to reported decreased p.o. intake. Patient does not have any liver function studies for evaluation. Patient is not reporting any GI issues to suggest colon cancer, but age-appropriate screening would be recommended. 3. GERD/protracted course/advanced age Complicates care, management, recovery and prognosis. Okay to continue with Pepcid therapy for now. No signs of a GI bleed clinically. This note was generated with Strandsation software. It may contain incorrect words, spelling, and punctuation that were not noted in checking the note before signing. Code Visit Inpatient E&M: 22583 Subs Hosp L2
--- NOTE | 2019-04-01 10:50 | DCINST_ITS ---
- Discharge Diagnoses Current Active Problems: Current Active and Chronic Problems Status asthmaticus (Acute) Respiratory failure with hypoxia (Acute) Sinus tachycardia by electrocardiogram (Acute) You will use the following diet at home:: No restrictions Your food should be the consistency of: Regular Your liquids should be the consistency of: Regular/Thin Call your doctor if you observe: Fever of 101 or Higher, Shortness of breath Allergies/Adverse Reactions: Allergies No Known Allergies Allergy (Verified 03/30/19 18:31) Medications to take at Discharge Albuterol Inhaler [Ventolin Hfa] 2 puff INHALATION Q4H PRN PRN 03/30/19 Mometasone/Formoterol [Dulera 100 Mcg/5 Mcg Inhaler] 13 gm IH BID 03/30/19 Acetaminophen [Tylenol Tablet] 650 mg PO Q6H PRN PRN tablet 04/01/19 Ensure Enlive 120 ml PO 4X/DAY #28 liquid 04/01/19 Ipratropium/Albuterol Sulfate [Duoneb] 3 ml INHALATION Q8H #28 ampul.neb 04/01/19 Montelukast [Singulair] 10 mg PO DAILY@1700 tablet 04/01/19 Prednisone 10 mg PO DAILY #30 tab.ds.pk 04/01/19 Sertraline HCl [Zoloft] 50 mg PO DAILY #30 tab 04/01/19 The following prescriptions were given: Ipratropium/Albuterol Sulfate [Duoneb] 3 ml INHALATION Q8H #28 ampul.neb Transmission Status: Pending to [facility] Ensure Enlive 120 ml PO 4X/DAY #28 liquid Transmission Status: Pending to [facility] Prednisone 10 mg PO DAILY #30 tab.ds.pk Transmission Status: Pending to [facility] Sertraline HCl [Zoloft] 50 mg PO DAILY #30 tab Transmission Status: Pending to [facility] Primary Care Physician: Elvia Doctor,Out of [NON-STAFF] - Please follow up with your Primary Care Physician in: 1-2 weeks Test Results: Test results from this visit will be discussed in further detail at your follow- up appointment, if applicable. Please Follow Up With: Tiny Finley NP-C When: 1-2 weeks Proposed Discharge Date: 04/01/19
--- NOTE | 2019-04-01 10:52 | PCM.DC.SUM ---
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 Electronically Signed: Lulú Colón MD at 20:47 EDT Tel , Service support , Chest CT 03/31/19 11:10 IMPRESSION: 1. Minor linear scarring or subsegmental atelectasis in the lateral basilar right middle lobe. 2. A pair of sub-6 mm nodules in the left lower lobe at the mid lung abut the pleural fissure. By Fleischner criteria, these do not require specific radiographic follow-up. 3. Normal heart size. There is mild anterior pericardial thickening. Atherosclerotic calcification noted in the left anterior descending coronary artery. 4. A few upper normal-sized hilar/subcarinal lymph nodes noted, likely reactive. 5. Several low-density, benign-appearing structures in the liver, as described. These could be further characterized with ultrasound or MRI. Electronically Signed: Jamie Hubbard MD at 15:32 EDT , Service support , Lawrence Arauz: pulm Summary of Care Provided: The patient is a 73 year old F presents with shortness of breath and hypoxia. 1. acute asthma exacerbation continue BDs and prednisone taper concern for Churg-Sivakumar given eosinophilia will need to follow up with Pulm as outpt 2. protein malnutrition 22.9% weight loss in 9 months. nutrition recommends supplements QID 3. Acute respiratory insufficiency 2/2 #1 resolved does not qualify for home oxygen 4. Anxiety initiate sertraline advised it may take several weeks for patient to notice, and she may require titrating advised against benzodiazepines given addiction potential [] Patient Problems: Active and Suspected Problems Acute asthma exacerbation (Acute) Respiratory failure with hypoxia (Acute) Sinus tachycardia by electrocardiogram (Acute) - Physical Exam General: Alert, No apparent distress, - - became tearful at one point. HEENT: Atraumatic, Normocephalic Lungs: Clear to auscultation, Normal air movement, No rhonchi, No wheeze Cardiovascular: Regular rate, Regular Rhythm, Normal S1, Normal S2, No murmurs Abdomen: Bowel Sounds Present, Soft, Non Tender, Non-Distended, No Hepato-splenomegaly Extremities: No clubbing, No edema, No Calf Tenderness Skin: No rashes, No breakdown Musculoskeletal: No Tenderness to Palpation of Joints or Extremities, No Muscle Wasting, Arthritic Changes, Cachexia Lymphatic: No Cervical, Supraclavicular, or Inguinal Adenopathy Neurological: Gait narrow based and stable Vital Signs Temp Pulse Resp BP Pulse Ox 36.5 C L 85 20 H 121/97 H 94 04/01/19 08:15 04/01/19 08:15 04/01/19 08:15 04/01/19 08:15 04/01/19 10:17 Oxygen Flow Rate (L/min) 2 Oxygen Delivery Method Room Air Weight: 51.7 kg Body Mass Index (BMI) 19.5 Intake and Output for Last 24 Hours 03/30/19 03/31/19 04/01/19 23:59 23:59 23:59 Intake Total 3594.00 / 3944.00 1650 / 1650 Output Total 600 / 1000 700 / 700 Balance 2994.00 / 2944.00 950 / 950 Discharge Diet: No Restrictions Call your doctor if you observe: Fever of 101 or Higher, Shortness of breath Home Medications: Medications to take at Discharge Albuterol Inhaler [Ventolin Hfa] 2 puff INHALATION Q4H PRN PRN 03/30/19 Mometasone/Formoterol [Dulera 100 Mcg/5 Mcg Inhaler] 13 gm IH BID 03/30/19 Acetaminophen [Tylenol Tablet] 650 mg PO Q6H PRN PRN tablet 04/01/19 Ensure Enlive 120 ml PO 4X/DAY #28 liquid 04/01/19 Ipratropium/Albuterol Sulfate [Duoneb] 3 ml INHALATION Q8H #28 ampul.neb 04/01/19 Montelukast [Singulair] 10 mg PO DAILY@1700 tablet 04/01/19 Prednisone 10 mg PO DAILY #30 tab.ds.pk 04/01/19 Sertraline HCl [Zoloft] 50 mg PO DAILY #30 tab 04/01/19 Following Prescrptions Were Given to Patient: Ipratropium/Albuterol Sulfate [Duoneb] 3 ml INHALATION Q8H #28 ampul.neb Transmission Status: Pending to [facility] Ensure Enlive 120 ml PO 4X/DAY #28 liquid Transmission Status: Pending to [facility] Prednisone 10 mg PO DAILY #30 tab.ds.pk Transmission Status: Pending to [facility] Sertraline HCl [Zoloft] 50 mg PO DAILY #30 tab Transmission Status: Pending to [facility] Primary Care Physician: Elvia Doctor,Out of [NON-STAFF] - Please follow up with your Primary Care Physician in: 1-2 weeks Please Follow Up With: Tiny Finley NP-C When: 1-2 weeks Disposition: Home Minutes spent on discharge:: 40 Patient Condition:: Fair Medical Necessity - Tobacco Use Smoking Status: Never smoker Meaningful Use Info Meaningful Use Diagnoses (Choose all that apply): None applicable Code Visit Inpatient E&M: 29423 Disch Hosp
--- NOTE | 2019-04-01 11:15 | CASEMGMT ---
Social Work Note SW assisted pt with completing advanced directives. SW placed copy on pt's chart and original provided to pt. Mine Sanchez DEPUTY DISTRICT CUSTOMS DIRECTOR, [employer]ATION OFFICER
[2019-04-01] MEDS: 0.9% NaCl Peripheral Flush Adult/Peds IV (13:55)
== END 2019-04-01 17:35 | disposition home or self-care (01) | DRG 189 ==
LOC: ED 21:29 → MS3 22:12
PROVIDERS: Admitting Provider Family Medicine; Emergency Provider Emergency Medicine
DX: J96.01 Acute respiratory failure with hypoxia (principal); E43 Unspecified severe protein-calorie malnutrition; J45.901 Unspecified asthma with (acute) exacerbation; Z68.1 Body mass index [BMI] 19.9 or less, adult; R00.0 Tachycardia, unspecified
CPT/HCPCS: 36415; 71046; 71260; 80048; 85025; 87633; 93005; 94640; 94667; 97161; 97802; 99285; J7030; Q9967; A4216

== ENCOUNTER → 2019-05-28 08:02 | Outpatient (CLI) | payer MEDICARE, SELFPAY ==
[2019-04-15 09:02] VITALS: BMI 19.5
--- NOTE | 2019-05-28 15:05 | PFTCOMP ---
COMPLETE PULMONARY FUNCTION TEST INTERPRETATION Brief HPI: Patient is a 73 year old female, currently under the care of myself, who presents to [facility] for complete pulmonary function tests secondary to diagnosis of asthma. Respiratory therapist reports good effort and reproducible results. Interpretation: Forced expiration spirometry shows a moderate large airways obstructive ventilatory defect with an FEV1 of 80% predicted. There is a significant bronchodilator response in FEV1 by strict ATS criteria. Spirograms are of good quality and plateau slowly, indicating slowly emptying areas of the lungs. The respiratory flow volume loop shows decreased expiratory flow rates at all lung volumes consistent with airway obstruction. Lung volumes by body plethysmography show a normal total lung capacity at 4.41 L, 92% predicted. All other lung volumes are within normal limits. Diffusion capacity by carbon monoxide is normal at 81% predicted. The airway resistance is elevated. No previous pulmonary function tests were available for review. Impression: Fully reversible moderate large airways obstructive ventilatory defect and a pattern consistent with asthma.
== END ==
PROVIDERS: Referring Provider Nurse Practitioner Acute Care; Visit Provider Nurse Practitioner Acute Care
DX: J45.909 Unspecified asthma, uncomplicated (principal); Z79.51 Long term (current) use of inhaled steroids
CPT/HCPCS: 94060; 94726; 94729

== ENCOUNTER 2019-07-27 14:50 | Inpatient (IN) | payer MEDICARE, SELFPAY ==
[2019-07-27] VITALS (9 sets, daily range): BP systolic 121–155; BP diastolic 68–78; PULSE 82–107; RESP 18–32; TEMP 36.5–36.9; O2SAT 85–97; BMI 19.5; BMI 21.6; BMI 21.2
--- NOTE | 2019-07-27 15:06 | EKG12_ITS ---
Test Reason : SOB Blood Pressure : / mmHG Vent. Rate : 101 BPM Atrial Rate : 101 BPM P-R Int : 128 ms QRS Dur : 120 ms QT Int : 356 ms P-R-T Axes : 084 091 049 degrees QTc Int : 461 ms Sinus tachycardia Right bundle branch block Septal infarct , age undetermined Abnormal ECG Confirmed by CARLA APARICIO, GEE ([id number]), graphic editor HILLARY DUBOIS ([id number]) on 07/29/2019 10:05:24 AM Referred By: Markell Interiano Confirmed By:GEE AGUIRRE MD
--- NOTE | 2019-07-27 15:10 | RAD_ITS ---
STUDY: X-RAY CHEST REASON FOR EXAM: Female, 74 years old. Extreme sob TECHNIQUE: Frontal view COMPARISON: March 30, 2019 FINDINGS: The lungs are clear and expanded. There is no demonstrated pleural abnormality. Normal size heart. Normal mediastinum and marielle. Normal visualized pulmonary arteries. Normal visualized aortic arch and descending thoracic aorta. Slight scoliosis of the vertebral,. Normal visualized ribs, clavicles, and shoulders. There is no demonstrated abnormality of the visualized soft tissue structures of the upper abdomen. RAD/Chest 1 View (Portable) IMPRESSION: Normal x-ray examination of the chest. Electronically Signed: Gaurang Hebert DO at 15:24 EST Tel [phone], Service support ,
[2019-07-27] MEDS: MethylPREDNISolone 125 MG/2 ML Vial IV (15:17)
[2019-07-27] MEDS: Ipratropium/Albuterol Sulfate 3 ML AMPUL.NEB INHALATION ×3 (15:17→23:05)
[2019-07-27] MEDS: Albuterol 2.5 MG/3 ML VIAL.NEB. INHALATION (15:26)
[2019-07-27 15:30] LABS: Absolute Lymphocyte Count 1.73 X10^3/uL (0.83-4.51); Absolute Neutrophil Count 3.4 X10^3/uL (2.0-7.7); Basophil# 0.06 X10^3/uL; Eosinophil# 0.54 X10^3/uL; Eosinophils% 8.7 % (0-5); Hematocrit 45.1 % (37-47); Hemoglobin 14.5 g/dL (12.0-15.0); Lymphocyte # 1.73 X10^3/ul (4.0); Lymphocyte % 27.8 % (19-41); Mean Corp Hgb Conc 32.2 g/dL (32-36); Mean Corpuscular Hgb 30.4 pg (27.0-32.0); Mean Corpuscular Volume 94.5 fL (81-99); Mean Platelet Vol. 10.9 fl (6.2-12.0); Monocyte# 0.52 X10^3/uL; Monocyte% 8.3 % (0-10); NRBC Flagged by Analyzer 0 % (0-5); Neutrophil # 3.36 X10^3/uL (2.7-7.7); Neutrophil % 53.9 % (47-70); Platelet Count 217 K/mm3 (150-450); Red Blood Count 4.77 M/mm3 (4.2-5.4); White Blood Count 6.2 K/mm3 (4.4-11.0)
[2019-07-27 15:45] LABS: Anion Gap 6 (5-15); BUN 19 mg/dL (7-18); BUN/Creat Ratio 22.1 RATIO (10-20); Calcium,Total 9.2 mg/dL (8.5-10.1); Chloride 108 mmol/L (98-107); Creatinine, Serum 0.86 mg/dL (0.55-1.02); EST Glomerular Filtration Rate 69 mL/min (>60); Est Glom Filt Rate - Afr Amer 83 mL/min (>60); Estimated Creatinine Clearance 49.56 ml/min; Glucose 95 mg/dL (74-106); Potassium 4.1 mmol/L (3.5-5.1); Sodium Level 142 mmol/L (136-145)
[2019-07-27 15:50] LABS: D-Dimer Quantitative (DVT/PE) 0.45 FEU/ug/m (0.27-0.49)
[2019-07-27 15:57] LABS: BNP,B-Type NATRIURETIC PEPTIDE 19.1 pg/mL (0-100)
--- NOTE | 2019-07-27 16:07 | ED.VISSUMM ---
- ER Visit Summary Date of Service: 07/27/19 Chief Complaint: [Shortness of breath] History of Present Illness: The patient is a 74 F [resents to the emergency department complaint shortness of breath for last 2 weeks. Patient was seen and admitted for same complaint several weeks ago. Patient continues to have cough. Patient states the cough is occasionally productive of some clear phlegm. She had some chest pain in the center of her left chest yesterday but that then resolved pretty quickly. She denies fevers. She denies recent travel or surgery. Patient has had episodes with breathing difficulty for some time and has seen several tyre finisher and examiner and Dr. Arauz is now the third tyre finisher and examiner seeing her for this. Patient's had pulmonary function test recently. Patient states that her eosinophils have been high. She has been off of prednisone for over a week.] Physical Examination: [HEENT-PERRLA, EOMI. Cranial nerves II through XII grossly intact. TMs clear. Mucous membranes moist. No adenopathy. Cardiovascular-regular rate and rhythm without murmur or ectopy Lungs-diminished breath sounds bilaterally with expiratory wheezes. Patient has some mild tachypnea. No sensory muscles or retractions. Abdomen-normoactive bowel sounds, soft, nontender, no rebound or rigidity, no peritoneal signs. Extremities-intact ?4, normal range of motion, normal pulses, atraumatic] Test Results: [CBC with differential obtained showed a white count 6.2, hemoglobin 14, hematocrit 45, platelets 217. Chemistries unremarkable. Troponin less than 0.15. BNP was 19. D-dimer was 0.45. Chest x-ray was normal. EKG obtained arrival shows sinus tachycardia with a rate of 101 and a right bundle branch block.] Emergency Department Course and Treatment: [She given Solu-Medrol 125 mg IV. Patient given DuoNeb aerosol as well as albuterol aerosols.] Treatment Plan: [Admit] Disposition: [Admit] Impression: [Anemia Hypoxemia Asthma] This note was generated with Locomizer dictation software. It may contain incorrect words, spelling, and punctuation that were not noted in review of the chart prior to signing ED Disposition - Plan for ED Patient: Referrals: Alexandrea García [Primary Care Provider] -
--- NOTE | 2019-07-27 17:13 | PCM.HP.STD ---
History of Present Illness Date of Admission: 07/27/19 Chief Complaint: shortness of breath The patient is a 74 year old F who has been short of breath for the past few weeks. The dyspnea has progressively gotten worse. Previously, would be put on abx and steroids by PCP, but has not recently. Has been using MDI more frequently, multiple times per day. Coughing with productive phlegm. Seen in ED today and had CXR that was unremarkable. She received BDs and steroids. 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) J45.909, Z79.51 Respiratory failure with hypoxia (Acute) J96.91 Sinus tachycardia by electrocardiogram (Acute) R00.0 Allergies No Known Allergies Allergy (Verified 03/30/19 18:31) Home Medications: Ambulatory Orders Medication Instructions Recorded Albuterol Inhaler [Ventolin Hfa] 2 puff INHALATION Q4H PRN PRN 03/30/19 Mometasone/Formoterol [Dulera 100 13 gm IH BID 03/30/19 Mcg/5 Mcg Inhaler] Acetaminophen [Tylenol Tablet] 650 mg PO Q6H PRN PRN tab 04/01/19 Ipratropium/Albuterol Sulfate 3 ml INHALATION Q8H #28 ampul.neb 04/01/19 [Duoneb] Montelukast [Singulair] 10 mg PO DAILY@1700 tab 04/01/19 cetirizine 10 mg capsule 10 mg PO HS #30 cap 06/04/19 Fluticasone Propionate 2 spray INTRANASAL DAILY PRN 07/27/19 Surgical History: no surgical history Psychiatric History: No pertinent psych hx 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 Paternal Family History: Family History (Last Reviewed 07/27/19 @ 17:16 by Markell Interiano DO) Brother Cancer Mother COPD (chronic obstructive pulmonary disease) Cancer Father Cancer Sister COPD (chronic obstructive pulmonary disease) History Items: - - Patient notes a paternal family history of COPD with concurrent tobacco usage as well as alcohol abuse. Sibling Family History: Family History (Last Reviewed 07/27/19 @ 17:16 by Markell Interiano DO) Brother Cancer Mother COPD (chronic obstructive pulmonary disease) Cancer Father Cancer Sister COPD (chronic obstructive pulmonary disease) History Items: - - Patient notes a sister with chronic COPD with no tobacco exposure as well as another sister with history of cervical cancer. Offspring Family History: Family History (Last Reviewed 07/27/19 @ 17:16 by Markell Interiano DO) Brother Cancer Mother COPD (chronic obstructive pulmonary disease) Cancer Father Cancer Sister COPD (chronic obstructive pulmonary disease) History Items: - - Patient notes that her daughter has a history of breast cancer. Review of Systems Constitutional: Denies: Anorexia, Chills, Fever, Night Sweats Eyes: Denies: Blurred vision, Double vision HEENT: Denies: Head Aches, Sinus Congestion, Sinus Drainage Cardiovascular: Reports: Chest Pain - w coughing. Denies: Palpitations Respiratory: Reports: Cough, Shortness of Breath, Sputum production Gastrointestinal: Denies: Abdominal Pain, Nausea, Vomiting Genitourinary: Denies: Dysuria Musculoskeletal: Denies: Joint Pain, Joint Tenderness Skin: Denies: Rash, Wounds Neurological: Denies: Numbness, Tingling, Focal weakness Psychiatric: Denies: Anxiety, Depression Endocrine: Denies: Change in Body Habitus Hematologic/ Lymphatic: Denies: Easy Bruising, Easy Bleeding, Hx of blood clot Comment: All review systems are otherwise negative except for as mentioned above and in HPI. VTE Information - Inpt Only VTE Present on Admission: No VTE Mechan Device Prophylaxis: None VTE Pharm Prophylaxis ordered?: Yes - Physical Exam Vitals/I&O's: Vital Signs Temp Pulse Resp BP Pulse Ox 36.5 C L 82 20 H 155/78 H 97 07/27/19 14:51 07/27/19 16:37 07/27/19 16:37 07/27/19 14:51 07/27/19 14:58 Oxygen Flow Rate (L/min) 2 Oxygen Delivery Method Nasal Cannula Weight: 56.1 kg Body Mass Index (BMI) 21.2 General: Alert, Cooperative, No apparent distress HEENT: Atraumatic, Normocephalic Oral: Moist Mucosa, No Gingival or Mucosal Lesions/ Ulcerations Neck: No Nodes, Trachea Midline Lungs: Diminished, Wheezes Cardiovascular: Regular rate, Regular Rhythm, Normal S1, Normal S2, No murmurs Abdomen: Bowel Sounds Present, Soft, Non Tender, Non-Distended, No Hepato-splenomegaly Extremities: No edema, No Calf Tenderness Skin: No rashes, No breakdown Musculoskeletal: No Tenderness to Palpation of Joints or Extremities, No Muscle Wasting Neurological: Muscle tone normal, - - No clonus Psych/Mental Status: Normal Affect, Appropriate Laboratory Results 07/27/19 15:16: WBC 6.2, RBC 4.77, Hgb 14.5, Hct 45.1, MCV 94.5, MCH 30.4, MCHC 32.2, RDW Std Deviation 42.0, RDW Coeff of Leah 12.0, Plt Count 217, MPV 10.9, Immature Gran % (Auto) 0.300, Neut % (Auto) 53.9, Lymph % (Auto) 27.8, [place] % (Auto) 8.3, Eos % (Auto) 8.7 H, Baso % (Auto) 1.0, Absolute Neuts (auto) 3.4, Absolute Lymphs (auto) 1.73, Nucleated RBC % 0 07/27/19 15:16: D-Dimer Quant (PE/DVT) 0.45 07/27/19 15:16: Sodium 142, Potassium 4.1, Chloride 108 H, Carbon Dioxide 28.0, Anion Gap 6, BUN 19 H, Creatinine 0.86, Estim Creat Clear Calc 49.56, Est GFR (MDRD) Af Amer 83, Est GFR (MDRD) Non-Af 69, BUN/Creatinine Ratio 22.1 H, Glucose 95, Calcium 9.2, Troponin I < 0.015 07/27/19 15:16: B-Natriuretic Peptide 19.1 EKG reviewed and showed sinus tachycardia with a right bundle branch block. Unchanged from March 30, 2019. Chest x-ray reviewed and showed normal airways with no pulmonary edema nor infiltrate. Current Medications Sodium Chloride () 250 mls @ 15 mls/hr IV .[id number] PRN PRN Reason: Saline Flush Sodium Chloride () 250 mls @ 15 mls/hr IV .[id number] PRN PRN Reason: Additional IVPB Infusion Sodium Chloride () 10 - 40 ml IV UD PRN PRN Reason: SALINE FLUSH Assessment/Plan All Active Problems (Last Reviewed 06/04/19 @ 09:28 by Tiny Finley, BIN TRIPPER OPERATOR-C) PND (post-nasal drip) (Acute) Acute asthma exacerbation (Acute) Respiratory failure with hypoxia (Acute) Sinus tachycardia by electrocardiogram (Acute) 1. Acute asthma exacerbation: This is progressively gotten worse over the past few weeks. Patient had pulmonary function test on May 28 of last year that showed asthma. Chest x-ray is negative for any acute process. Plan is to continue with bronchodilators and as well as steroids with methylprednisolone. Patient was to follow-up with Dr. Arauz on the . Will consult pulmonology for further input and recommendations. 2. Acute hypoxic respiratory insufficiency: Secondary to above. Patient was 88% on room air when she arrived. Check an ambulatory pulse ox prior to discharge to see if patient would be a candidate for oxygen. 3. VTE prophylaxis: Moderate risk. Enoxaparin. Advanced care planning: Spent a additional 15 minutes discussing CPR with the patient and what is specifically involved with CPR and when it is indicated, also discussed survival and is low rates when CPR is initiated. Patient wishes to consider further. I told the patient that I would leave her at full CODE STATUS and recommend she have further conversations with her family about goals of care in the future. Code Visit Inpatient E&M: 93091 Init Hosp L3 Procedures: 78004 Advncd Care Plan 30 Min
[2019-07-27] MEDS: 0.9% Saline Lock 10 ML Syringe IV (22:33)
--- NOTE | 2019-07-27 22:39 | NURSING ---
Called resp therapist Sage d/t pt O2 sat at 85%, lungs diminished throughout. Applied )2 at 3L, sat increased to 92%. Solumedrol given.
[2019-07-28] VITALS (8 sets, daily range): BP systolic 122–148; BP diastolic 59–86; PULSE 96–103; RESP 18–28; TEMP 36.6–36.9; O2SAT 92–97
[2019-07-28] MEDS: Ipratropium/Albuterol Sulfate 3 ML AMPUL.NEB INHALATION ×4 (03:35→15:15)
[2019-07-28] MEDS: 0.9% Saline Lock 10 ML Syringe IV (05:36)
[2019-07-28 06:28] LABS: Absolute Lymphocyte Count 0.64 X10^3/uL (0.83-4.51); Absolute Neutrophil Count 2.9 X10^3/uL (2.0-7.7); Hematocrit 43.4 % (37-47); Hemoglobin 13.9 g/dL (12.0-15.0); Lymphocyte # 0.64 X10^3/ul (4.0); Lymphocyte % 17.6 % (19-41); Mean Corpuscular Hgb 30.3 pg (27.0-32.0); Mean Corpuscular Volume 94.8 fL (81-99); Mean Platelet Vol. 11.3 fl (6.2-12.0); Monocyte# 0.07 X10^3/uL; Monocyte% 1.9 % (0-10); NRBC Flagged by Analyzer 0 % (0-5); Neutrophil # 2.91 X10^3/uL (2.7-7.7); Platelet Count 204 K/mm3 (150-450); Red Blood Count 4.58 M/mm3 (4.2-5.4); White Blood Count 3.6 K/mm3 (4.4-11.0)
--- NOTE | 2019-07-28 07:15 | PCM.CONS.PUL ---
Reason for Consult Date of Consultation: 07/28/19 Reason for Consultation: Acute asthma exacerbation History of Present Illness: The patient is a 74-year-old female, with a history as outlined below, who presented to the emergency department on July 27 with complaints of shortness of breath. The patient was last admitted to the hospital in March 2019, during which time, she was treated for an asthma exacerbation as well. Pulmonary function studies last completed in May 2019 revealed evidence of a fully reversible moderate large airways obstructive ventilatory defect consistent with an asthma pattern. The patient is currently prescribed Dulera, as needed albuterol and Singulair in her home environment. She does have a history of frequent exacerbations. As part of her outpatient work-up, a CBC with differential was obtained through an outside hospital at the beginning of July which revealed 25% peripheral eosinophilia. The patient reported that she did have significant chest tightness and wheezing prior to her admission to the hospital. She has improved symptomatically since being started on scheduled bronchodilators and IV steroids. On presentation to the emergency department, the patient was noted to be afebrile, tachypneic and hypoxemic. Laboratory evaluation revealed no evidence of a leukocytosis. Of note, on presentation, the patient did have an elevated peripheral eosinophil count at 8.7%. D-dimer was negative. Chemistry profile was unremarkable. Troponin and BNP were within normal limits. Plain film chest x-ray revealed no acute cardiopulmonary process. The patient was treated with scheduled bronchodilators and IV steroids. She was subsequently admitted to the medical surgical floor for further management. 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) J45.909, Z79.51 Respiratory failure with hypoxia (Acute) J96.91 Sinus tachycardia by electrocardiogram (Acute) R00.0 Allergies No Known Allergies Allergy (Verified 03/30/19 18:31) Home Medications: Ambulatory Orders Medication Instructions Recorded Albuterol Inhaler [Ventolin Hfa] 2 puff INHALATION Q4H PRN PRN 03/30/19 Mometasone/Formoterol [Dulera 100 13 gm IH BID 03/30/19 Mcg/5 Mcg Inhaler] Acetaminophen [Tylenol Tablet] 650 mg PO Q6H PRN PRN tab 04/01/19 Ipratropium/Albuterol Sulfate 3 ml INHALATION Q8H #28 ampul.neb 04/01/19 [Duoneb] Montelukast [Singulair] 10 mg PO DAILY@1700 tab 04/01/19 cetirizine 10 mg capsule 10 mg PO HS #30 cap 06/04/19 Fluticasone Propionate 2 spray INTRANASAL DAILY PRN 07/27/19 Prednisone 10 mg PO DAILY #30 tab 07/28/19 Surgical History: no surgical history Psychiatric History: No pertinent psych hx 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 Paternal Family History: Family History (Last Reviewed 07/27/19 @ 17:16 by Markell Interiano DO) Brother Cancer Mother COPD (chronic obstructive pulmonary disease) Cancer Father Cancer Sister COPD (chronic obstructive pulmonary disease) History Items: - - Patient notes a paternal family history of COPD with concurrent tobacco usage as well as alcohol abuse. Sibling Family History: Family History (Last Reviewed 07/27/19 @ 17:16 by Markell Interiano DO) Brother Cancer Mother COPD (chronic obstructive pulmonary disease) Cancer Father Cancer Sister COPD (chronic obstructive pulmonary disease) History Items: - - Patient notes a sister with chronic COPD with no tobacco exposure as well as another sister with history of cervical cancer. Offspring Family History: Family History (Last Reviewed 07/27/19 @ 17:16 by Markell Interiano DO) Brother Cancer Mother COPD (chronic obstructive pulmonary disease) Cancer Father Cancer Sister COPD (chronic obstructive pulmonary disease) History Items: - - Patient notes that her daughter has a history of breast cancer. Review of Systems Constitutional: Denies: Chills, Fever, Weight Change HEENT: Denies: Head Aches, Sinus Congestion, Sinus Drainage Cardiovascular: Reports: Chest Tightness Respiratory: Reports: Cough, Shortness of Breath, Wheezing. Denies: Sputum production Gastrointestinal: Denies: Abdominal Pain, Nausea, Vomiting Genitourinary: Denies: Dysuria Musculoskeletal: Denies: Joint Pain, Joint Tenderness Skin: Denies: Rash, Wounds Neurological: Denies: Numbness, Tingling, Focal weakness Psychiatric: Denies: Anxiety, Depression, Homicidal Ideations, Suicidal Ideations Hematologic/ Lymphatic: Denies: Easy Bruising, Easy Bleeding Objective: The patient's most recent lab work, culture data and imaging studies have all been personally reviewed. - Physical Exam Vitals/I&O's: Vital Signs Temp Pulse Resp BP Pulse Ox 98.4 F 103 H 20 H 131/86 H 94 07/28/19 03:35 07/28/19 03:35 07/28/19 03:39 07/28/19 03:35 07/28/19 03:35 Oxygen Flow Rate (L/min) 2 Oxygen Delivery Method Nasal Cannula Weight: 123 lb 10.869 oz Body Mass Index (BMI) 21.2 Intake and Output for Last 24 Hours 07/26/19 07/27/19 07/28/19 23:59 23:59 23:59 Intake Total 372 / 372 Balance 372 / 372 General: Alert, Oriented x3, Cooperative, No apparent distress, - - Sitting in bedside recliner. HEENT: Atraumatic, PERRLA, Normocephalic Oral: No Gingival or Mucosal Lesions/ Ulcerations Neck: Supple, No Nodes, Trachea Midline Lungs: - - Lung nelson are grossly clear to auscultation at the current time. There is no accessory muscle use. Cardiovascular: Regular rate, Regular Rhythm, Normal S1, Normal S2 Abdomen: Bowel Sounds Present, Soft, Non Tender Extremities: No clubbing, No cyanosis, No edema Skin: No breakdown Musculoskeletal: No Tenderness to Palpation of Joints or Extremities, No Muscle Wasting Lymphatic: No Cervical, Supraclavicular, or Inguinal Adenopathy Neurological: Cranial nerves II-XII grossly intact, Neuro grossly intact Psych/Mental Status: Alert and oriented to time, place, person, mood and affect Labs (Last 48 Hours) 07/27/19 07/27/19 07/27/19 15:16 15:16 15:16 WBC 6.2 RBC 4.77 Hgb 14.5 Hct 45.1 MCV 94.5 MCH 30.4 MCHC 32.2 RDW Std Deviation 42.0 RDW Coeff of Leah 12.0 Plt Count 217 MPV 10.9 Immature Gran % (Auto) 0.300 Neut % (Auto) 53.9 Lymph % (Auto) 27.8 [place] % (Auto) 8.3 Eos % (Auto) 8.7 H Baso % (Auto) 1.0 Absolute Neuts (auto) 3.4 Absolute Lymphs (auto) 1.73 Nucleated RBC % 0 D-Dimer Quant (PE/DVT) 0.45 Sodium 142 Potassium 4.1 Chloride 108 H Carbon Dioxide 28.0 Anion Gap 6 BUN 19 H Creatinine 0.86 Estim Creat Clear Calc 49.56 Est GFR (MDRD) Af Amer 83 Est GFR (MDRD) Non-Af 69 BUN/Creatinine Ratio 22.1 H Glucose 95 Calcium 9.2 Troponin I < 0.015 B-Natriuretic Peptide 07/27/19 07/28/19 15:16 05:50 WBC 3.6 L RBC 4.58 Hgb 13.9 Hct 43.4 MCV 94.8 MCH 30.3 MCHC 32.0 RDW Std Deviation 42.0 RDW Coeff of Leah 12.0 Plt Count 204 MPV 11.3 Immature Gran % (Auto) 0.500 Neut % (Auto) 80.0 H Lymph % (Auto) 17.6 L [place] % (Auto) 1.9 Eos % (Auto) 0.0 Baso % (Auto) 0.0 Absolute Neuts (auto) 2.9 Absolute Lymphs (auto) 0.64 L Nucleated RBC % 0 D-Dimer Quant (PE/DVT) Sodium Potassium Chloride Carbon Dioxide Anion Gap BUN Creatinine Estim Creat Clear Calc Est GFR (MDRD) Af Amer Est GFR (MDRD) Non-Af BUN/Creatinine Ratio Glucose Calcium Troponin I B-Natriuretic Peptide 19.1 Clinical Impression(s) from Imaging Studies Chest X-Ray 07/27/19 15:10 IMPRESSION: Normal x-ray examination of the chest. Electronically Signed: Gaurang Hebert DO at 15:24 EST Tel [phone], Service support , Current Medications Acetaminophen (Tylenol) 650 mg PO Q6H PRN PRN PRN Reason: Pain Score 1-3/Temp > 100.7 F Albuterol Sulfate (Ventolin Aerosols) 2.5 mg INHALATION Q2H PRN PRN PRN Reason: SHORTNESS OF BREATH Albuterol/Ipratropium (Duoneb) 3 ml INHALATION Q4H.RT [facility] Last Admin: 07/28/19 03:35 Dose: 3 ml Documented by: Dextrose (D50w Syringe) 0 gm IV X1 PRN; Protocol PRN Reason: Hypoglycemia Enoxaparin Sodium (Lovenox) 40 mg SC DAILY [facility] Glucagon () 1 mg IM .X1 PRN PRN Reason: Hypoglycemia Guaifenesin/Codeine Phosphate (Robitussin Ac) 5 ml PO Q6H PRN PRN PRN Reason: coughing fits Sodium Chloride () 250 mls @ 15 mls/hr IV .[id number] PRN PRN Reason: Saline Flush Sodium Chloride () 250 mls @ 15 mls/hr IV .[id number] PRN PRN Reason: Additional IVPB Infusion Methylprednisolone (Solu-Medrol) 40 mg IV Q8 [facility] Last Admin: 07/28/19 05:36 Dose: 40 mg Documented by: Ondansetron HCl (Zofran) 4 mg IV Q8H PRN PRN PRN Reason: NAUSEA/VOMITING Sodium Chloride () 10 - 40 ml IV UD PRN PRN Reason: SALINE FLUSH Last Admin: 07/28/19 05:36 Dose: 10 ml Documented by: Assessment/Plan All Active Problems (Last Reviewed 07/27/19 @ 17:16 by Markell Interiano DO) PND (post-nasal drip) (Acute) Acute asthma exacerbation (Acute) Respiratory failure with hypoxia (Acute) Sinus tachycardia by electrocardiogram (Acute) RECOMMENDATIONS: 1. Continue scheduled bronchodilators and steroids. Okay to transition to prednisone 40 mg daily by mouth. 2. Check respiratory viral panel. 3. Wean supplemental oxygen to maintain saturations at or above 90%. 4. Encourage incentive spirometer use and mobilize patient as tolerated. 5. Add daily Singulair to medication regimen. 6. The patient will require prolonged steroid taper at discharge. 7. She is currently scheduled to follow-up with Dr. Arauz on July 30. Okay to discharge home with outpatient follow-up in 2 days. IMPRESSIONS: 1. Acute asthma exacerbation Unclear precipitating etiology. However, the patient does report having been exposed to sick grandchildren recently. Therefore, viral etiology is a possibility. She is currently on maximal therapy for asthma with scheduled Dulera, as needed albuterol and Singulair in her home environment. Despite this, the patient continues to have frequent exacerbations and remains quite symptomatic. Outpatient lab work completed at the beginning of the month revealed significant peripheral eosinophilia. The patient is currently symptomatically improved. I do suspect that she can likely be safely discharged home later today with plans to go home with a prednisone taper. She has been instructed that she should follow-up with Dr. Arauz on July 30 as scheduled. She would likely benefit from the initiation of outpatient biologic therapy, given her peripheral eosinophil count. 2. Allergic rhinitis Continue Flonase per outpatient regimen. This note was generated with [employer] dictation software. It may contain incorrect words, spelling, and punctuation that were not noted in checking the note before signing. Code Visit Inpatient E&M: 16778 Init Hosp L3
[2019-07-28] MEDS: Enoxaparin 40 MG/0.4 ML Syringe SC (10:08)
--- NOTE | 2019-07-28 11:11 | DCINST_ITS ---
You will use the following diet at home:: Regular Your food should be the consistency of: Regular Discharge Activity: May Not Drive - For about 1 week Weight Bearing Status: Weight bearing as tolerated Call your doctor if you observe: Fever of 101 or Higher, Numbness or Tingling, Change in Color, Inability to urinate, Inability to have a bowel movement, Using more than one pad per hour, Shortness of breath, Dizziness, Fainting spells, Swelling in the ankles, Chest pain, Prolonged hiccoughing, Increased palpitations (irregular heartbeat), Calf discomfort Allergies/Adverse Reactions: Allergies No Known Allergies Allergy (Verified 03/30/19 18:31) Medications to take at Discharge Albuterol Inhaler [Ventolin Hfa] 2 puff INHALATION Q4H PRN PRN 03/30/19 Mometasone/Formoterol [Dulera 100 Mcg/5 Mcg Inhaler] 13 gm IH BID 03/30/19 Acetaminophen [Tylenol Tablet] 650 mg PO Q6H PRN PRN tab 04/01/19 Ipratropium/Albuterol Sulfate [Duoneb] 3 ml INHALATION Q8H #28 ampul.neb 04/01/19 Montelukast [Singulair] 10 mg PO DAILY@1700 tab 04/01/19 cetirizine 10 mg capsule 10 mg PO HS #30 cap 06/04/19 Fluticasone Propionate 2 spray INTRANASAL DAILY PRN 07/27/19 Prednisone 10 mg PO DAILY #30 tab 07/28/19 The following prescriptions were given: Prednisone 10 mg PO DAILY #30 tab Transmission Status: Pending to [facility] Primary Care Physician: Alexandrea García [Primary Care Provider] - Please follow up with your Primary Care Physician in: In 1 to 2 weeks Test Results: Test results from this visit will be discussed in further detail at your follow- up appointment, if applicable. Please Follow Up With: Lawrence Arauz MD When: on 07/30/18
--- NOTE | 2019-07-28 11:22 | DS.PCM_ITS ---
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 She was admitted with 2 to 3 weeks of progressive worsening shortness of breath along with wheezing. She denies any fever or chills but has cough. Chest x-ray does not show any acute process. Respiratory panel is negative. Patient was admitted on telemetry floor on bronchodilator, IV Solu-Medrol, incentive spirometry and chest physiotherapy. Patient was seen by manufacturing production manager. He recommended discharge on tapering dose of prednisone starting 40 mg daily. Prescription sent to patient's pharmacy. Patient has Jessica Ramesh, [place] at home. Patient acute respiratory insufficiency secondary asthma exacerbation resolved. Patient was 88% on room air when she arrived. Patient had home oxygen testing. Found to be 97% on room air. Does not need oxygen. VTE prophylaxis: Moderate risk. Enoxaparin. Patient was admitted as inpatient but was discharged because of sooner recovery than expected. Discharge medication reconciliation done. Discharge follow-up instructions completed. Discharge process discussed with the patient and all questions were answered to patient's satisfaction. Total time spent, exact 35 minutes on discharge meds reconciliation, examination, review of imaging and blood test and discussion with the patient on follow-up instructions. Subjective: Seen and examined. Patient shortness of breath has much improved. Not in respiratory distress. Hemodynamically stable. - Physical Exam Vitals/I&O's: Vital Signs Temp Pulse Resp BP Pulse Ox 98.0 F 97 22 H 122/59 H 97 07/28/19 10:04 07/28/19 10:04 07/28/19 10:04 07/28/19 10:04 07/28/19 10:04 Oxygen Flow Rate (L/min) 96 Oxygen Delivery Method Nasal Cannula Weight: 123 lb 10.869 oz Body Mass Index (BMI) 21.2 Intake and Output for Last 24 Hours 07/26/19 07/27/19 07/28/19 23:59 23:59 23:59 Intake Total 372 / 372 Balance 372 / 372 General: Alert, Oriented x3, Cooperative HEENT: Atraumatic, PERRLA, EOMI, Normocephalic Neck: Supple, No JVD, Negative Carotid Bruits Lungs: Diminished - Air entry slightly diminished bilaterally but has much improved. Slight wheezing on coughing. Cardiovascular: Regular rate, Regular Rhythm, Normal S1, Normal S2, No murmurs Abdomen: Bowel Sounds Present, Soft, Non Tender, Non-Distended Extremities: No edema, Capillary Refill Less than 3 Seconds Skin: No rashes, No breakdown Musculoskeletal: No Tenderness to Palpation of Joints or Extremities, Arthritic Changes Lymphatic: No Cervical, Supraclavicular, or Inguinal Adenopathy Neurological: Cranial nerves II-XII grossly intact Psych/Mental Status: Normal Affect, Appropriate Microbiology Past 72 Hours 07/28/19 07:30 Mucosa - Nose Respiratory Panel (PCR) - Final Laboratory Results 07/27/19 15:16: WBC 6.2, RBC 4.77, Hgb 14.5, Hct 45.1, MCV 94.5, MCH 30.4, MCHC 32.2, RDW Std Deviation 42.0, RDW Coeff of Leah 12.0, Plt Count 217, MPV 10.9, Immature Gran % (Auto) 0.300, Neut % (Auto) 53.9, Lymph % (Auto) 27.8, [place] % (Auto) 8.3, Eos % (Auto) 8.7 H, Baso % (Auto) 1.0, Absolute Neuts (auto) 3.4, Absolute Lymphs (auto) 1.73, Nucleated RBC % 0 07/27/19 15:16: D-Dimer Quant (PE/DVT) 0.45 07/27/19 15:16: Sodium 142, Potassium 4.1, Chloride 108 H, Carbon Dioxide 28.0, Anion Gap 6, BUN 19 H, Creatinine 0.86, Estim Creat Clear Calc 49.56, Est GFR (MDRD) Af Amer 83, Est GFR (MDRD) Non-Af 69, BUN/Creatinine Ratio 22.1 H, Glucose 95, Calcium 9.2, Troponin I < 0.015 07/27/19 15:16: B-Natriuretic Peptide 19.1 01/13/20 05:50: WBC 3.6 L, RBC 4.58, Hgb 13.9, Hct 43.4, MCV 94.8, MCH 30.3, MCHC 32.0, RDW Std Deviation 42.0, RDW Coeff of Leah 12.0, Plt Count 204, MPV 11.3, Immature Gran % (Auto) 0.500, Neut % (Auto) 80.0 H, Lymph % (Auto) 17.6 L, [place] % (Auto) 1.9, Eos % (Auto) 0.0, Baso % (Auto) 0.0, Absolute Neuts (auto) 2.9, Absolute Lymphs (auto) 0.64 L, Nucleated RBC % 0 Current Medications Acetaminophen (Tylenol) 650 mg PO Q6H PRN PRN PRN Reason: Pain Score 1-3/Temp > 100.7 F Albuterol Sulfate (Ventolin Aerosols) 2.5 mg INHALATION Q2H PRN PRN PRN Reason: SHORTNESS OF BREATH Albuterol/Ipratropium (Duoneb) 3 ml INHALATION Q4H.RT CONY Last Admin: 07/28/19 07:23 Dose: 3 ml Documented by: Dextrose (D50w Syringe) 0 gm IV X1 PRN; Protocol PRN Reason: Hypoglycemia Enoxaparin Sodium (Lovenox) 40 mg SC DAILY CONY Last Admin: 07/28/19 10:08 Dose: 40 mg Documented by: Glucagon () 1 mg IM .X1 PRN PRN Reason: Hypoglycemia Guaifenesin/Codeine Phosphate (Robitussin Ac) 5 ml PO Q6H PRN PRN PRN Reason: coughing fits Sodium Chloride () 250 mls @ 15 mls/hr IV .[id number] PRN PRN Reason: Saline Flush Sodium Chloride () 250 mls @ 15 mls/hr IV .[id number] PRN PRN Reason: Additional IVPB Infusion Methylprednisolone (Solu-Medrol) 40 mg IV Q12 CONY Montelukast Sodium (Singulair) 10 mg PO DAILY@1700 CONY Ondansetron HCl (Zofran) 4 mg IV Q8H PRN PRN PRN Reason: NAUSEA/VOMITING Sodium Chloride () 10 - 40 ml IV UD PRN PRN Reason: SALINE FLUSH Last Admin: 07/28/19 05:36 Dose: 10 ml Documented by: Discharge Activity: May Not Drive - For about 1 week Weight Bearing Status: Weight bearing as tolerated Call your doctor if you observe: Fever of 101 or Higher, Numbness or Tingling, Change in Color, Inability to urinate, Inability to have a bowel movement, Using more than one pad per hour, Shortness of breath, Dizziness, Fainting spells, Swelling in the ankles, Chest pain, Prolonged hiccoughing, Increased palpitations (irregular heartbeat), Calf discomfort Home Medications: Medications to take at Discharge Albuterol Inhaler [Ventolin Hfa] 2 puff INHALATION Q4H PRN PRN 03/30/19 Mometasone/Formoterol [Dulera 100 Mcg/5 Mcg Inhaler] 13 gm IH BID 03/30/19 Acetaminophen [Tylenol Tablet] 650 mg PO Q6H PRN PRN tab 04/01/19 Ipratropium/Albuterol Sulfate [Duoneb] 3 ml INHALATION Q8H #28 ampul.neb 04/01/19 Montelukast [Singulair] 10 mg PO DAILY@1700 tab 04/01/19 cetirizine 10 mg capsule 10 mg PO HS #30 cap 06/04/19 Fluticasone Propionate 2 spray INTRANASAL DAILY PRN 07/27/19 Prednisone 10 mg PO DAILY #30 tab 07/28/19 Following Prescrptions Were Given to Patient: Prednisone 10 mg PO DAILY #30 tab Transmission Status: Pending to [facility] Primary Care Physician: Alexandrea García [Primary Care Provider] - Please follow up with your Primary Care Physician in: In 1 to 2 weeks Please Follow Up With: Lawrence Arauz MD When: on 07/30/18 Medical Necessity - Tobacco Use Smoking Status: Never smoker Meaningful Use Info Meaningful Use Diagnoses (Choose all that apply): None applicable Code Visit Inpatient E&M: 24556 Disch Hosp
--- NOTE | 2019-07-28 12:10 | CASEMGMT ---
RN CM Face to Face with patient for initial transition planning/care coordination assessment. RN CM introduced self and role at [facility]. Patient sitting in chair, alert and oriented. Patient willing to participate in assessment and is able to answer all questions appropriately. Care providers, pharmacy, and demographics verified. Patient wishes to discharge home, denies need for home health at this time. Patient states she has no further needs or concerns at this time. CM to follow for discharge planning needs that may arise. PCP: Raquel Specialists: [facility] Preferred Pharmacy: [facility] Insurance: [email or web address] Prescription Benefit:yes Living Will/HPOA: yes, daughter Lana Pena LNOK: daughter Living Arrangements: Patient lives alone in [place] with bed and bath on first floor. Patient is independent at home. Transportation: self/daughter DME/HHC: Patient has nebulizer at home. Denies further DME. No previous HHC Disposition Plan: Patient to discharge home with family support and follow-up plans in place. Mine LEÓNN, RN, CM
[2019-07-28] MEDS: guaiFENesin/Codeine 5 ML UDC PO (13:39)
--- NOTE | 2019-07-29 13:57 | CASEMGMT ---
ROCÍO DELA CRUZ DC PHONE CALL DC DATE: 07.29.2019 DC Disposition: Home Diagnosis on Discharge: Asthma Exacerbation LACE/STRATA: 04/17 Intro purpose of call and role of CM to patient. Pt states she feels about the same as when she left. Has medications and no questions. States she f/u with pulmonology tomorrow and ROCÍO DELA CRUZ recommended she take dc instructions with her and discuss how she is feeling. No concerns at this time, and pt states she had great care at the hospital. Lolita LEÓNN RN ACM
== END 2019-07-28 17:26 | disposition home or self-care (01) | DRG 203 ==
LOC: ED 15:49 → MS3 16:37
PROVIDERS: Emergency Provider Emergency Medicine; Visit Provider Internal Medicine
DX: J45.901 Unspecified asthma with (acute) exacerbation (principal); R06.89 Other abnormalities of breathing; R00.0 Tachycardia, unspecified; F32.9 Major depressive disorder, single episode, unspecified; Z79.51 Long term (current) use of inhaled steroids; Z79.899 Other long term (current) drug therapy
CPT/HCPCS: 36415; 71045; 80048; 83880; 84484; 85025; 85379; 87633; 93005; 94640; 97802; 99251; 99285; A4216; G0463

== ENCOUNTER → 2020-01-07 13:54 | Outpatient (CLI) | payer MEDICARE, SELFPAY ==
[2020-01-07 13:01] VITALS: BMI 25.0
[2020-01-07 14:15] LABS: Absolute Lymphocyte Count 1.23 X10^3/uL (0.83-4.51); Absolute Neutrophil Count 4.9 X10^3/uL (2.0-7.7); Basophil# 0.01 X10^3/uL; Basophil% 0.2 % (0-1); Differential Indicated SCAN CRITERIA MET; Eosinophils% 1.5 % (0-5); Hematocrit 44.2 % (37-47); Hemoglobin 14.6 g/dL (12.0-15.0); Lymphocyte # 1.23 X10^3/ul (4.0); Lymphocyte % 18.8 % (19-41); Mean Corpuscular Hgb 30.8 pg (27.0-32.0); Mean Corpuscular Volume 93.2 fL (81-99); Mean Platelet Vol. 11.1 fl (6.2-12.0); Monocyte# 0.27 X10^3/uL; Monocyte% 4.1 % (0-10); NRBC Flagged by Analyzer 0 % (0-5); Neutrophil % 74.9 % (47-70); POSITIVE MORPHOLOGY YES; Platelet Count 223 K/mm3 (150-450); RBC Distribution Width SD 41.4 fl (35.1-43.9); Red Blood Count 4.74 M/mm3 (4.2-5.4); White Blood Count 6.5 K/mm3 (4.4-11.0)
[2020-01-09 15:19] LABS: ANTINUCLEAR ANTIBODIES DIRECT Negative (Negative)
[2020-01-09 20:07] LABS: Cytoplasmic Ab (C-ANCA) <1:20 titer (Neg:<1:20)
[2020-01-09 21:50] LABS: Perinuclear Ab (P-ANCA) <1:20 titer (Neg:<1:20)
== END ==
PROVIDERS: Referring Provider Nurse Practitioner Acute Care; Visit Provider Nurse Practitioner Acute Care
DX: M30.1 Polyarteritis with lung involvement [Churg-Strauss] (principal)
CPT/HCPCS: 36415; 85025; 86038; 86225; 86235; 86256

== ENCOUNTER → 2020-08-18 13:26 | Outpatient (CLI) | payer MEDICARE, SELFPAY ==
[2020-08-18 12:42] VITALS: BMI 25.2
== END ==
PROVIDERS: Referring Provider Nurse Practitioner Acute Care; Visit Provider Nurse Practitioner Acute Care
DX: Z00.00 Encounter for general adult medical examination without abnormal findings (principal)

== ENCOUNTER → 2023-05-24 | Outpatient (CLI) | payer MEDICARE, SELFPAY ==
--- NOTE | 2023-05-24 10:44 | ECHOD_ITS ---
Reason For Study: DYSPNEA Procedure This was a 2D Doppler, Color Flow transthoracic echocardiogram. Exam performed in department. Left Ventricle Normal LV size. The estimated ejection fraction is 65 %. No evidence for diastolic dysfunction. No regional wall motion abnormalities noted. Right Ventricle Normal RV size. Normal systolic function. Atria Normal left atrium. Normal right atrium. No doppler evidence for ASD. Mitral Valve There is no mitral valve stenosis. No mitral valve insufficiency. Tricuspid Valve There is no tricuspid stenosis. Trivial tricuspid valve insufficiency. Pulmonary artery systolic pressure is 25 mmHg. Aortic Valve Trisinus/trileaflet aortic valve. There is no aortic stenosis. No aortic valve insufficiency. Pulmonic Valve There is no pulmonic valvular stenosis. No pulmonic valve insufficiency. Great Vessels Normal aortic root. Pericardium/Pleural Small pericardial effusion with no definite evidence of tamponade. MMode/2D Measurements & Calculations LVIDd: 4.0 cm IVSd: 1.0 cm Ao root diam: 2.9 cm LVIDs: 2.6 cm LVPWd: 1.3 cm FS: 34.9 % LAV(MOD-bp): 44.2 ml LVAd ap4: 24.9 cm2 SV(MOD-sp4): 52.1 ml LAV(MOD-bp) Indexed: 26.5 ml/m2 LVLd ap4: 7.3 cm LAV(MOD-sp2): 46.2 ml EDV(MOD-sp4): 72.6 ml LAV(MOD-sp4): 40.2 ml EDV(sp4-el): 72.3 ml LVAs ap4: 11.5 cm2 LVLs ap4: 6.0 cm ESV(MOD-sp4): 20.4 ml ESV(sp4-el): 18.5 ml EF(MOD-sp4): 71.8 % EF(sp4-el): 74.4 % SV(sp4-el): 53.8 ml LA A4 area: 16.4 cm2 LA dimension(2D): 3.4 cm RA A4 area: 15.1 cm2 TAPSE: 2.1 cm Time Measurements MV dec time: 0.17 sec Doppler Measurements & Calculations MV E max noah: 65.3 cm/sec Med Peak E' Noah: 5.4 cm/sec MV V2 max: 99.7 cm/sec MV A max noah: 80.8 cm/sec E/E' med: 12.1 MV max P.0 mmHg MV E/A: 0.81 MV V2 mean: 64.8 cm/sec MV mean P.8 mmHg MV V2 VTI: 28.2 cm Ao V2 max: 113.8 cm/sec LV V1 max: 86.3 cm/sec MV dec slope: 397.6 cm/sec2 Ao max P.2 mmHg LV V1 max P.5 mmHg Ao V2 mean: 81.6 cm/sec LV V1 mean P.1 mmHg Ao mean P.0 mmHg LV V1 mean: 67.7 cm/sec Ao V2 VTI: 25.8 cm LV V1 VTI: 21.3 cm AV (velocity ratio): 0.83 PA V2 max: 89.1 cm/sec TR max noah: 250.2 cm/sec PA V2 mean: 74.1 cm/sec TR max P.0 mmHg ECHO/Echo Complete Interpretation Summary The estimated ejection fraction is 65 %. No evidence for diastolic dysfunction. Small pericardial effusion with no definite evidence of tamponade Ordering Physician: Lawrence Arauz Referring Physician: Lawrence Arauz Performed By: Raine Lopez RCS
--- NOTE | 2023-05-25 07:43 | PFTCOMP_ITS ---
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 Respiratory therapist reports good effort and reproducible results. Interpretation: Forced expiration spirometry shows a mild large airways obstructive ventilatory defect with an FEV1 of 76% predicted. There is a significant bronchodilator response in FVC and FEV1 by strict ATS criteria. Spirograms are of good quality and plateau slowly, indicating slowly emptying areas of the lungs. The respiratory flow volume loop shows decreased expiratory flow rates at all lung volumes consistent with airway obstruction. Lung volumes by body plethysmography show a normal total lung capacity at 4.49 L, 91% predicted. FRC and RV are elevated out of proportion. Lung volume measurements are consistent with air-trapping. Diffusion capacity by carbon monoxide is decreased at 50% predicted. The airway resistance is elevated. Compared to previous pulmonary function tests from 05/28/2019, there has been a significant worsening in air trapping and DLCO. Impression: Fully reversible moderate large airways obstructive ventilatory defect resulting in air trapping, but of disproportionate reduction in diffusion capacity with worsening compared to previous testing.
== END | disposition home or self-care (01) ==
PROVIDERS: Referring Provider Internal Medicine Critical Care Medicine; Visit Provider Internal Medicine Critical Care Medicine
DX: J96.01 Acute respiratory failure with hypoxia (principal); M30.1 Polyarteritis with lung involvement [Churg-Strauss]
CPT/HCPCS: 93306; 94060; 94726; 94729